=== PATIENT | female | born 1935 | race Caucasian/White ===

== ENCOUNTER 2016-12-23 12:48 | Outpatient (CLI) ==
[2015-12-21 16:16] VITALS: BMI 25.4
--- NOTE | 2016-12-27 10:56 | ECHO2D ---
Date of Exam: 12/23/16 Ordering Physician: NILAY ROSENTHAL Reason for Echo: SOB, COPD M-Mode Normal Adult Results LV Dimensions Normal Adult Results AoV Opening excursions >1.6 >1.6 LVEDD-base- 3.5-5.8 3.9 Ao root dimensions 2.0-3.7 3.2 LVESD-base- 3.1-4.6 L. Atrium dimensions 1.9-3.8 3.7 Post. Wall thickness 0.8-1.1 1.2 IV septum (thickness) 0.7-1.2 1.2 Post. Wall excursion 0.72-1.3 NORMAL Septal motion NORMAL Systolic motion R. Ventricular cavity 1.5-2.0 NORMAL LVEF 60% 68% Paradoxical septal wall motion NORMAL 2-D : 2-D M Mode Echocardiogram was performed using apical four chamber and left parasternal long and short axis views. Mitral, tricuspid and aortic valves appear to be normal. Contractility of the left ventricle seems to be normal, so is the cavity size. Left atrial cavity size and aortic root appear to be normal. There is no pericardial effusion. There is no thrombus noted in the left ventricular or left aortic cavity. No mitral valve prolapse noted. M-MODE: MV: NORMAL AV: NORMAL TV: NORMAL PV: CHAMBER SIZE: NORMAL WALL MOTION: NORMAL PERICARDIUM: NORMAL INTERPRETATION: 1. BORDERLINE LEFT VENTRICULAR HYPERTROPHY 2. NORMAL LEFT VENTRICULAR CONTRACTILITY 3. NORMAL VALVES MTDD
== END 2016-12-23 12:49 | disposition home or self-care (01) ==
LOC: CAR 12:48
PROVIDERS: ATTEND Internal Medicine
DX: R06.02 Shortness of breath (principal); J44.9 Chronic obstructive pulmonary disease, unspecified

== ENCOUNTER 2017-07-18 06:32 | Outpatient (CLI) ==
[2015-12-21 16:16] VITALS: BMI 25.4
[2017-07-18] MEDS ORDERED: ATROPINE SULFATE PFS ONE (06:50)
[2017-07-18] MEDS ORDERED: DOBUTAMINE 250 ML IV ONE (06:50)
--- NOTE | 2017-07-18 09:39 | DOBSTECHO ---
Ordering Physician: NILAY ROSENTHAL Date of Test: 07/18/17 Reason for Examination: SURGICAL CLEARANCE, PVC'S, SOB Current Medications: DILTIAZEM, TRIAMTERENE, SOLTALOL, PRILOSEC, ZOCOR, METHOTREXATE, CLONIDINE, SPIRIVA Height: 61" Weight: 133 LBS Target Heart Rate: 117/138 ST Segment Stage Time HR BPM BP mmhg Rhythm +/- Up Down Comments/Symptoms Control Sitting 55 122/60 SR X NONE Dobutamine 250mg/D5W 5cmg/KG/mn 10cmg/KG/mn 3" 62 SR X NONE 15cmg/KG/mn 2" 72 150/72 SR X NONE 20cmg/KG/mn 2" 75 178/70 SR X NONE 25cmg/KG/mn 2" 78 180/62 SR X NONE 30cmg/KG/mn 2" 84 180/60 SR X NONE 35cmg/KG/mn 2" 88 180/56 SR X NONE 40cmg/KG/mn 2:17 116 .25 MG ATROPINE Time: 4" HR B/P Time: 10" HR B/P Time: HR B/P Recovery 93 152/76 Recovery 74 168/68 Recovery Total Time: 15:17 Maximum Heart Rate Reached: 116 Interpretation: 1. NO EVIDENCE OF ISCHEMIA BY ST--T T WAVE 2. NO CHEST PAIN OR CHEST DISCOMFORT NORMAL LEFT VENTRICULAR CONTRACTILITY--RESTING AND DURING DOBUTAMINE INFUSION MTDD
--- NOTE | 2017-07-18 09:42 | ECHOSTRESS ---
Date of Exam: 07/18/17 Ordering Physician: NILAY ROSENTHAL Reason for Echo: HX PVC, SOB, SURGICAL CLEARANCE, DOBUTAMINE STRESS TEST--NO ISCHEMIA M-Mode Normal Adult Results LV Dimensions Normal Adult Results AoV Opening excursions >1.6 LVEDD-base- 3.5-5.8 Ao root dimensions 2.0-3.7 LVESD-base- 3.1-4.6 L. Atrium dimensions 1.9-3.8 Post. Wall thickness 0.8-1.1 IV septum (thickness) 0.7-1.2 Post. Wall excursion 0.72-1.3 Septal motion Systolic motion R. Ventricular cavity 1.5-2.0 LVEF 60% Paradoxical septal wall motion 2-D: NORMAL LEFT VENTRICULAR CONTRACTILITY--RESTING AND DURING DOBUTAMINE INFUSION M-MODE: MV: AV: TV: PV: CHAMBER SIZE: WALL MOTION: NORMAL LEFT VENTRICULAR CONTRACTILITY--RESTING AND DURING DOBUTAMINE INFUSION PERICARDIUM: INTERPRETATION: 1. NORMAL LEFT VENTRICULAR CONTRACTILITY--RESTING AND DURING DOBUTAMINE INFUSION MTDD
== END 2017-07-18 06:33 | disposition home or self-care (01) ==
LOC: CAR 06:32
PROVIDERS: ATTEND Internal Medicine
DX: R06.02 Shortness of breath (principal); I10 Essential (primary) hypertension; Z01.810 Encounter for preprocedural cardiovascular examination; Z86.79 Personal history of other diseases of the circulatory system

== ENCOUNTER 2017-08-03 04:44 | Emergency (ER) ==
[2017-08-03 04:54] VITALS: BP 164/97; TEMP 96.1; BMI 25.1
[2017-08-03] MEDS ORDERED: SOLU-MEDROL 125 MG IM STA (05:44)
--- NOTE | 2017-08-03 05:47 | ED.PDOC ---
General ED Provider: Dr. ALBARO LUDWIG Chief Complaint: Hand Pain/Injury Stated Complaint: pateint states she has a history of RA with joint pain but has had no flare up until recently when she had to have back surgery and her methotraxate was stopped. She took Ibupfufen for right PIP and DIP joints pain of ther 4th and 5 th fingers. Time Seen by Physician: 05:44 Mode of Arrival: Walk-In Information Source: Patient, Family Exam Limitations: Physical impairment Primary Care Provider: NILAY ROSENTHAL Nursing and Triage Documentation Reviewed and Agree: Yes Musculoskeletal Complaint Exam - Hand/Wrist Complaint/Exam Location of Pain: Reports: Right, Digit #4, Digit #5 Onset/Duration: 3 days Symptoms Are: Still present Onset of Pain: Reports: Immediate Initial Severity: Moderate Current Severity: Mild Location: Reports: Discrete (PIP and DIP joints ) Character: Reports: Aching, Throbbing Aggravating: Reports: Movement Associated Signs and Symptoms: Reports: Swelling Related History: Reports: Similar episode Dominant Hand: Right Related Surgical History: Reports: None Hand/Wrist Findings: Present: Swelling Tenderness: Present: Metacarpal (tenosinovitis ) Hand Picture: 1 - pain and swelling Differential Diagnoses: Sprain, Strain, Tendonitis Review of Systems - Review Of Systems Constitutional: Reports: No symptoms Eyes: Reports: No symptoms Ears, Nose, Mouth, Throat: Reports: No symptoms Respiratory: Reports: No symptoms Cardiac: Reports: No symptoms GI: Reports: No symptoms : Reports: No symptoms Musculoskeletal: Reports: Joint pain, Joint swelling (Right hand ) Skin: Reports: No symptoms Neurological: Reports: No symptoms Endocrine: Reports: No symptoms Hematologic/Lymphatic: Reports: No symptoms All Other Systems: Reviewed and Negative Past Medical History - Past Medical History Previously Healthy: Yes Endocrine: Reports: Dyslipidemia Cardiovascular: Reports: CAD, Hypertension Respiratory: Reports: None Hematological: Reports: None Gastrointestinal: Reports: None Genitourinary: Reports: None Neuro/Psych: Reports: None Musculoskeletal: Reports: Arthritis Cancer: Reports: None Last Menstrual Period: UNKNOWN - Surgical History General Surgical History: Reports: Back Surgery, Other (breast biopsy) - Family History Family History: Reports: None - Social History Smoking Status: Never smoker Hx Substance Use: No Alcohol Screening: None - Immunizations Tetanus Shot up to Date: Yes Physical Exam - Physical Exam Appearance: Ill-appearing, Thin Ill-appearing: Mild Pain Distress: Moderate Neck: Supple Respiratory: Airway patent, Breath sounds clear, Breath sounds equal, Respirations nonlabored GI/: Soft, Nontender, No masses, Bowel sounds normal, No Organomegaly Musculoskeletal: Normal strength, ROM intact, No edema, No calf tenderness Skin: Warm, Dry (lower back wound helaing ) Neurological: Sensation intact, Motor intact, Reflexes intact, Cranial nerves intact, Alert, Oriented Psychiatric: Anxious Critical Care Note - Critical Care Note Total Time (mins): 0 Course - Course Orders, Labs, Meds: Orders Category Date Time Status Methylprednisolone Sod Succ/Pf [Solu-Medrol 125 mg] MEDS 08/03/17 05:44 Discontinued 125 mg IM ONCE STA Medications Discontinued Medications Generic Name Dose Route Start Last Admin Trade Name Freq PRN Reason Stop Dose Admin Methylprednisolone Sodium Succinate 125 mg 08/03/17 05:44 08/03/17 05:55 Solu-Medrol 125 Mg IM 08/03/17 05:45 125 mg ONCE STA Administration Vital Signs: Temp Pulse Resp BP Pulse Ox 08/03/17 04:45 96.1 F L 52 L 18 164/97 H 94 L Departure - Departure Time of Disposition: 06:15 Disposition: HOME SELF-CARE Discharge Problem: Rheumatoid arthritis flare Instructions: Rheumatoid Arthritis (ED) Condition: Fair Pt referred to PMD for follow-up: Yes Additional Instructions: Take Medrol dose pack if symptoms of pain and swelling persists Prescriptions: Methylprednisolone [Medrol Dosepak] 4 mg PO DIRECTED #1 pkg Allergies/Adverse Reactions: Allergies chlorpheniramine [From Kelli] Adverse Reaction (Verified 08/09/15 04:35) codeine Adverse Reaction (Verified 08/09/15 04:35) hydrocodone Adverse Reaction (Verified 08/09/15 04:35) ibandronate sodium [From Boniva] Adverse Reaction (Verified 08/09/15 04:35) imipramine HCl [From Tofranil] Adverse Reaction (Verified 08/09/15 04:35) oseltamivir phosphate [From Tamiflu] Adverse Reaction (Verified 08/09/15 04:35) oxymetazoline HCl [From Kelli] Adverse Reaction (Verified 08/09/15 04:35) pheniramine maleate [From Kelli] Adverse Reaction (Verified 08/09/15 04:35) phenylephrine HCl [From Kelli] Adverse Reaction (Verified 08/09/15 04:35) pseudoephedrine HCl [From Kelli] Adverse Reaction (Verified 08/09/15 04:35) ramipril [From Altace] Adverse Reaction (Verified 08/09/15 04:35) zolpidem tartrate [From Ambien] Adverse Reaction (Verified 08/09/15 04:35) TAPE Adverse Reaction (Uncoded 08/03/17 04:55) Home Medications: Ambulatory Orders Acetaminophen 2,000 mg PO DAILY PRN 06/18/13 Clonidine HCl [Catapres] 0.1 mg PO DAILY PRN 06/18/13 Cyclosporine [Restasis] 2 each OP BID 06/18/13 Folic Acid 2 mg PO DAILY 06/18/13 Omeprazole [Prilosec] 20 mg PO QDAC 06/18/13 Diltiazem HCl [Cardizem LA] 120 mg PO BID 06/21/14 Polyethylene Glycol 3350 [Miralax] 17 gm PO DAILY PRN 06/21/14 Simvastatin [Zocor] 20 mg PO DAILY 06/21/14 L.acidoph,Paracasei, B.lactis [Probiotic] 1 each PO DIRECTED 08/09/15 Albuterol Sulfate [Proair Hfa] 2 puff IH Q4H PRN 08/03/17 Ascorbate Calcium [Vitamin C] 500 mg PO DAILY 08/03/17 Calcium Carbonate/Vitamin D3 [Calcium 600-Vit D3 800 Tablet] 1 each PO BID 08/03 Diphenhydramine HCl [Benadryl] 1 - 2 cap PO BEDTIME 08/03/17 Ibuprofen 400 mg PO Q6H PRN 08/03/17 Lutein 20 mg PO DAILY 08/03/17 Methotrexate Sodium [Trexall] 3 mg PO [place] 08/03/17 Methylprednisolone [Medrol Dosepak] 4 mg PO DIRECTED #1 pkg 08/03/17 Sotalol HCl [Sotalol] 80 mg PO BID 08/03/17 Tiotropium [place] [Spiriva Respimat] 2 inh IH DAILY 08/03/17 Triamterene/Hydrochlorothiazid [Triamterene-Hctz 37.5-25 mg Cp] 1 each PO DAILY 08/03/17 Disposition Discussed With: Patient, Family
== END 2017-08-03 06:12 | disposition home or self-care (01) ==
LOC: ED 04:44
DX: M79.641 Pain in right hand (principal); M06.9 Rheumatoid arthritis, unspecified; Z98.890 Other specified postprocedural states; Z79.899 Other long term (current) drug therapy
CPT/HCPCS: 96372; 99282

== ENCOUNTER 2018-04-05 19:03 | Emergency (ER) ==
[2018-04-05 19:16] VITALS: BP 154/63; TEMP 98.1; BMI 24.1
[2018-04-05] MEDS ORDERED: SOLU-MEDROL 125 MG IM STA (19:43)
[2018-04-05] MEDS ORDERED: CLARITIN PO STA (19:43)
[2018-04-05] MEDS ORDERED: PEPCID PO STA (19:43)
[2018-04-05] MEDS ORDERED: EPINEPHRINE 1:1,000 AMP IM STA (19:43)
--- NOTE | 2018-04-05 20:07 | ED.PDOC ---
General ED Provider: Dr. ALBARO LUDWIG Chief Complaint: Rash Stated Complaint: Patient states she has had a rash on the back and Trunk for months. The rash has not improved. was seen by Dermatology but was not offered anything other than treatment for mites. Time Seen by Physician: 19:20 Information Source: Patient Primary Care Provider: NILAY ROSENTHAL Nursing and Triage Documentation Reviewed and Agree: Yes Does patient meet sepsis criteria?: No System Inflammatory Response Syndrome: Not Applicable Sepsis Protocol: For patient's 13 years and over: Temp is 96.8 and below OR 101 and greater Pulse >90 BPM Resp >20/minute Acutely Altered Mental Status Are patient's symptoms suggestive of a new infection, such as: -Pneumonia -Skin, Soft Tissue -Endocarditis -UTI -Bone, Joint Infection -Implantable Device -Acute Abdominal Infection -Wound Infection -Meningitis -Blood Stream Catheter Infection -Unknown Skin Complaint Exam - Skin Rash/Itching Complaint/Exam Onset/Duration: months Symptoms Are: Still present Initial Severity: Mild Current Severity: Moderate Location: Trunk Potential Exposures: Reports: Unknown Prior Treatment: Benadryl, Prednisone Aggravating: Reports: None Alleviating: Reports: None Associated Signs and Symptoms: Denies: Difficulty breathing, Fever, Chills Skin Findings: Present: Urticaria, Lesions Differential Diagnoses: Allergic Reaction Review of Systems - Review Of Systems Constitutional: Reports: No symptoms Eyes: Reports: No symptoms Ears, Nose, Mouth, Throat: Reports: No symptoms Respiratory: Reports: No symptoms Cardiac: Reports: No symptoms GI: Reports: No symptoms : Reports: No symptoms Musculoskeletal: Reports: No symptoms Skin: Reports: Rash (with puritis ) Neurological: Reports: No symptoms Endocrine: Reports: No symptoms Hematologic/Lymphatic: Reports: No symptoms All Other Systems: Reviewed and Negative Past Medical History - Past Medical History Previously Healthy: Yes Endocrine: Reports: Dyslipidemia Cardiovascular: Reports: CAD, Hypertension Respiratory: Reports: None Hematological: Reports: None Gastrointestinal: Reports: None Genitourinary: Reports: None Neuro/Psych: Reports: None Musculoskeletal: Reports: Arthritis Cancer: Reports: None Last Menstrual Period: unknown - Surgical History General Surgical History: Reports: Back Surgery, Other (breast biopsy) - Family History Family History: Reports: None - Social History Smoking Status: Never smoker Hx Substance Use: No Alcohol Screening: None Physical Exam - Physical Exam Appearance: Ill-appearing Ill-appearing: Mild Eyes: ELOISE, EOMI, Conjunctiva clear ENT: Ears normal, Nose normal, Oropharynx normal Respiratory: Airway patent, Breath sounds clear, Breath sounds equal, Respirations nonlabored Cardiovascular: RRR, Pulses normal, No rub, No murmur GI/: Soft, Nontender, No masses, Bowel sounds normal, No Organomegaly Musculoskeletal: Normal strength, ROM intact, No edema, No calf tenderness Skin: Warm, Dry, Normal color Neurological: Sensation intact, Motor intact, Reflexes intact, Cranial nerves intact, Alert, Oriented Psychiatric: Affect appropriate, Mood appropriate Critical Care Note - Critical Care Note Total Time (mins): 0 Course - Course Orders, Labs, Meds: Orders Category Date Time Status Epinephrine Amp [Epinephrine 1:1,000 Amp] MEDS 04/05/18 19:43 Discontinued 0.3 mg IM ONCE STA Famotidine [Pepcid] MEDS 04/05/18 19:43 Discontinued 20 mg PO ONCE STA Loratadine [Claritin] MEDS 04/05/18 19:43 Discontinued 10 mg PO ONCE STA Methylprednisolone Sod Succ/Pf [Solu-Medrol 125 mg] MEDS 04/05/18 19:43 Discontinued 125 mg IM ONCE STA Medications Discontinued Medications Generic Name Dose Route Start Last Admin Trade Name Freq PRN Reason Stop Dose Admin Epinephrine HCl 0.3 mg 04/05/18 19:43 04/05/18 20:01 Epinephrine 1:1,000 Amp IM 04/05/18 19:44 0.3 mg ONCE STA Administration Famotidine 20 mg 04/05/18 19:43 04/05/18 19:56 Pepcid PO 04/05/18 19:44 20 mg ONCE STA Administration Loratadine 10 mg 04/05/18 19:43 04/05/18 19:56 Claritin PO 04/05/18 19:44 10 mg ONCE STA Administration Methylprednisolone Sodium Succinate 125 mg 04/05/18 19:43 04/05/18 20:01 Solu-Medrol 125 Mg IM 04/05/18 19:44 125 mg ONCE STA Administration Vital Signs: Temp Pulse Resp BP Pulse Ox 04/05/18 19:04 98.1 F 49 L 20 154/63 H 96 Departure - Departure Time of Disposition: 20:05 Disposition: HOME SELF-CARE Discharge Problem: Pruritic rash, Dermatitis, vesicular Instructions: Dermatitis (ED) Condition: Stable Pt referred to PMD for follow-up: Yes IPMP verified?: No Additional Instructions: continue home Benadryl as needed for itching May also take claritin, zyrtec or allergra = H1 blockers In addition may take Pepcid or Zantac = H2 pau Follow up with Dermatology for Skin biopsy Continue dose of predispose for now until your doctor decides to stop it. Allergies/Adverse Reactions: Allergies chlorpheniramine [From Kelli] Adverse Reaction (Verified 04/05/18 19:18) codeine Adverse Reaction (Verified 04/05/18 19:18) hydrocodone Adverse Reaction (Verified 04/05/18 19:18) ibandronate sodium [From Boniva] Adverse Reaction (Verified 04/05/18 19:18) imipramine HCl [From Tofranil] Adverse Reaction (Verified 04/05/18 19:18) oseltamivir phosphate [From Tamiflu] Adverse Reaction (Verified 04/05/18 19:18) oxymetazoline HCl [From Kelli] Adverse Reaction (Verified 04/05/18 19:18) pheniramine maleate [From Kelli] Adverse Reaction (Verified 04/05/18 19:18) phenylephrine HCl [From Kelli] Adverse Reaction (Verified 04/05/18 19:18) pseudoephedrine HCl [From Kelli] Adverse Reaction (Verified 04/05/18 19:18) ramipril [From Altace] Adverse Reaction (Verified 04/05/18 19:18) zolpidem tartrate [From Ambien] Adverse Reaction (Verified 04/05/18 19:18) TAPE Adverse Reaction (Uncoded 08/03/17 04:55) Home Medications: Ambulatory Orders Acetaminophen 2,000 mg PO DAILY PRN 06/18/13 Clonidine HCl [Catapres] 0.1 mg PO DAILY PRN 06/18/13 Cyclosporine [Restasis] 2 each OP BID 06/18/13 Folic Acid 2 mg PO DAILY 06/18/13 Omeprazole [Prilosec] 20 mg PO QDAC 06/18/13 Diltiazem HCl [Cardizem LA] 120 mg PO BID 06/21/14 Polyethylene Glycol 3350 [Miralax] 17 gm PO DAILY PRN 06/21/14 Simvastatin [Zocor] 20 mg PO DAILY 06/21/14 L.acidoph,Paracasei, B.lactis [Probiotic] 1 each PO DIRECTED 08/09/15 Albuterol Sulfate [Proair Hfa] 2 puff IH Q4H PRN 08/03/17 Ascorbate Calcium [Vitamin C] 500 mg PO DAILY 08/03/17 Calcium Carbonate/Vitamin D3 [Calcium 600-Vit D3 800 Tablet] 1 each PO BID 08/03 Diphenhydramine HCl [Benadryl] 1 - 2 cap PO BEDTIME 08/03/17 Ibuprofen 400 mg PO Q6H PRN 08/03/17 Lutein 20 mg PO DAILY 08/03/17 Methotrexate Sodium [Trexall] 3 mg PO [place] 08/03/17 Methylprednisolone [Medrol Dosepak] 4 mg PO DIRECTED #1 pkg 08/03/17 Sotalol HCl [Sotalol] 80 mg PO BID 08/03/17 Tiotropium [place] [Spiriva Respimat] 2 inh IH DAILY 08/03/17 Triamterene/Hydrochlorothiazid [Triamterene-Hctz 37.5-25 mg Cp] 1 each PO DAILY 08/03/17 Disposition Discussed With: Patient, Family
== END 2018-04-05 20:45 | disposition home or self-care (01) ==
LOC: ED 19:03
DX: R21 Rash and other nonspecific skin eruption (principal); L29.9 Pruritus, unspecified
CPT/HCPCS: 96372; 99282

== ENCOUNTER 2019-01-30 13:29 | Emergency (ER) ==
[2019-01-30 13:37] VITALS: TEMP 99.7
[2019-01-30 13:52] VITALS: BMI 23.5
--- NOTE | 2019-01-30 14:01 | ED.PDOC ---
General ED Provider: Dr. JOHN PAUL LARIOS Chief Complaint: Hypertension Stated Complaint: Elevated BP. b/p readings steadily going up over past 2 weeks --has swelling to lower legs with left leg worse--has been taking furosemide-- took clonidine 0.1mg at 12:12--checked b/p at 1300 at 214/87--sl "head fullness " noted when b/p up--no haeadache or chest pain Time Seen by Physician: 13:55 Mode of Arrival: Walk-In Information Source: Patient Exam Limitations: No limitations Primary Care Provider: NILAY ROSENTHAL Nursing and Triage Documentation Reviewed and Agree: Yes Does patient meet sepsis criteria?: No System Inflammatory Response Syndrome: Not Applicable Sepsis Protocol: For patient's 13 years and over: Temp is 96.8 and below OR 101 and greater Pulse >90 BPM Resp >20/minute Acutely Altered Mental Status Are patient's symptoms suggestive of a new infection, such as: -Pneumonia -Skin, Soft Tissue -Endocarditis -UTI -Bone, Joint Infection -Implantable Device -Acute Abdominal Infection -Wound Infection -Meningitis -Blood Stream Catheter Infection -Unknown Cardiovascular Complaint Exam - Hypertension Complaint/Exam Onset/Duration: 2 wk Symptoms Are: Still present Timing: Constant Reported B/P Prior to Arrival: / Aggravating: Reports: Exertion Alleviating: Reports: None Associated Signs and Symptoms: Reports: Headache, Weakness, Dizziness, Swelling. Denies: Chest pain, Vision changes, Anxiety, Recent stress, Numbness , Tingling, Short of air Related History: Denies: Similar episode Related Surgical History: Reports: None Cardiac Risk Factors: Reports: Hypertension A/V Nicking: No Papilledema Present: No JVD Present: No Carotid Bruit Present: No Femoral Pulses Bounding: No Differential Diagnoses: Hypertensive Urgency Review of Systems - Review Of Systems Constitutional: Reports: Weakness Eyes: Reports: No symptoms Ears, Nose, Mouth, Throat: Reports: No symptoms Respiratory: Reports: No symptoms Cardiac: Reports: No symptoms, Edema GI: Reports: No symptoms : Reports: No symptoms Musculoskeletal: Reports: No symptoms Skin: Reports: No symptoms Neurological: Reports: Headache Endocrine: Reports: No symptoms Hematologic/Lymphatic: Reports: No symptoms All Other Systems: Reviewed and Negative Past Medical History - Past Medical History Previously Healthy: Yes Endocrine: Reports: Dyslipidemia Cardiovascular: Reports: CAD, Hypertension Respiratory: Reports: None Hematological: Reports: None Gastrointestinal: Reports: None Genitourinary: Reports: None Neuro/Psych: Reports: None Musculoskeletal: Reports: Arthritis Cancer: Reports: None Last Menstrual Period: menopause - Surgical History General Surgical History: Reports: Back Surgery, Other (breast biopsy) - Family History Family History: Reports: None - Social History Smoking Status: Never smoker Hx Substance Use: No Alcohol Screening: None Physical Exam - Physical Exam Appearance: Ill-appearing Ill-appearing: Mild Eyes: ELOISE, EOMI, Conjunctiva clear ENT: Ears normal, Nose normal, Oropharynx normal Neck: Supple Respiratory: Airway patent, Breath sounds clear, Breath sounds equal, Respirations nonlabored Cardiovascular: RRR, Pulses normal, No rub, No murmur GI/: Soft, Nontender, No masses, Bowel sounds normal, No Organomegaly Musculoskeletal: Normal strength, ROM intact, No edema, No calf tenderness Skin: Warm, Dry, Normal color Neurological: Sensation intact, Motor intact, Reflexes intact, Cranial nerves intact, Alert, Oriented Psychiatric: Affect appropriate, Mood appropriate Interpretation - Radiology Interpretation Exam Interpreted: CXR (No acute abnoramlities) Critical Care Note - Critical Care Note Total Time (mins): 60 Course - Course Hematology/Chemistry: 01/30/19 14:46 01/30/19 14:46 Orders, Labs, Meds: Lab Review 01/30/19 01/30/19 01/30/19 14:46 14:46 14:46 WBC 16.83 H RBC 2.88 L Hgb 10.7 L Hct 31.3 L MCV 108.7 H MCH 37.2 H MCHC 34.2 RDW Coeff of Timothy 14.6 Plt Count 388 Immature Gran % (Auto) 1.6 Neut % (Auto) 90.4 Lymph % (Auto) 1.7 L [place] % (Auto) 6.0 Eos % (Auto) 0.1 Baso % (Auto) 0.2 Immature Gran # (Auto) 0.3 Neut # (Auto) 15.2 H Lymph # (Auto) 0.3 L [place] # (Auto) 1.0 Eos # (Auto) 0.0 Baso # (Auto) 0.0 Anisocytosis Not present Macrocytosis 1+ Sodium 130.9 L Potassium 4.00 Chloride 97.4 L Carbon Dioxide 28.5 Anion Gap 9.00 BUN 26.2 H Creatinine 0.71 Estimated GFR (MDRD) 79.00 BUN/Creatinine Ratio 36.90 Glucose 123.4 H Calcium 8.95 Magnesium 1.77 Total Bilirubin 0.74 AST 24.7 ALT 22.7 Alkaline Phosphatase 218.1 H Troponin I 0.018 Total Protein 5.56 L Albumin 3.47 L Globulin 2.09 Albumin/Globulin Ratio 1.66 Orders Category Date Time Status EKG-(ED ONLY) Stat CARDIO 01/30/19 14:24 Completed CBC W/ AUTO DIFF Stat LAB 01/30/19 14:46 Completed CMP [COMPREHENSIVE METABOLIC PANEL] Stat LAB 01/30/19 14:46 Completed MAGNESIUM Stat LAB 01/30/19 14:46 Completed RBC MORPHOLOGY Stat LAB 01/30/19 14:46 Completed TROPONIN I Stat LAB 01/30/19 14:46 Completed CHEST, 1V AP ONLY Stat RADS 01/30/19 14:24 Completed Vital Signs: Temp Pulse Resp BP Pulse Ox 01/30/19 15:19 158/69 H 01/30/19 14:21 65 20 170/69 H 01/30/19 13:29 99.7 F H 70 16 169/74 H 94 L COLT Risk Score COLT Risk Score: Risk Score Odds of by 30D 0 0.1 (0.1-0.2) 1 0.3 (0.2-0.3) 2 0.4 (0.3-0.5) 3 0.7 (0.6-0.9) 4 1.2 (1.0-1.5) 5 2.2 (1.9-2.6) 6 3.0 (2.5-3.6) 7 4.8 (3.8-6.1) Departure - Departure Time of Disposition: 17:00 Disposition: HOME SELF-CARE Discharge Problem: Hypertension Instructions: Hypertension (ED) Condition: Good Pt referred to PMD for follow-up: Yes IPMP verified?: No Additional Instructions: Take Cozar 1 daily Monitor BP daily If BP >160 />90-100, and symptomatic, rest for 30 min and recheck BP; IF remains elevated take Clonidine 1/2 tab and notify PCP/If remains elevated come to ER. Continue other meds as directed Monitor electrolytes/ Potassium level through Dr Sandy office and keep K+ level 3.5-5.1 Allergies/Adverse Reactions: Allergies certolizumab pegol [From Cimzia] Adverse Reaction (Verified 03/04/19 16:50) Hives chlorpheniramine [From Drlanny] Adverse Reaction (Verified 03/04/19 16:50) codeine Adverse Reaction (Verified 03/04/19 16:50) duloxetine [From Cymbalta] Adverse Reaction (Verified 03/04/19 16:50) DIARRHEA/DRY HEAVES hydrocodone Adverse Reaction (Verified 03/04/19 16:50) ibandronate sodium [From Boniva] Adverse Reaction (Verified 03/04/19 16:50) imipramine HCl [From Tofranil] Adverse Reaction (Verified 03/04/19 16:50) oseltamivir phosphate [From Tamiflu] Adverse Reaction (Verified 03/04/19 16:50) oxymetazoline HCl [From Kelli] Adverse Reaction (Verified 03/04/19 16:50) pheniramine maleate [From Kelli] Adverse Reaction (Verified 03/04/19 16:50) phenylephrine HCl [From Kelli] Adverse Reaction (Verified 03/04/19 16:50) pseudoephedrine HCl [From Kelli] Adverse Reaction (Verified 03/04/19 16:50) ramipril [From Altace] Adverse Reaction (Verified 03/04/19 16:50) zolpidem tartrate [From Ambien] Adverse Reaction (Verified 03/04/19 16:50) TAPE Adverse Reaction (Uncoded 02/03/19 03:38) Home Medications: Ambulatory Orders Clonidine HCl [Catapres] 0.1 mg PO DAILY PRN 06/18/13 Cyclosporine [Restasis] 2 each OP BID 06/18/13 Omeprazole [Prilosec] 20 mg PO QDAC 06/18/13 Diltiazem HCl [Cardizem LA] 120 mg PO BID 06/21/14 Polyethylene Glycol 3350 [Miralax] 17 gm PO DAILY PRN 06/21/14 Simvastatin [Zocor] 20 mg PO DAILY 06/21/14 Albuterol Sulfate [Proair Hfa] 2 puff IH Q4H PRN 08/03/17 Lutein 20 mg PO DAILY 08/03/17 Sotalol HCl [Sotalol] 80 mg PO TID 08/03/17 Methotrexate Sodium [Methotrexate] 6 tab PO CASTAÑEDA 08/01/18 Prednisone 10 mg PO DIRECTED 08/01/18 Acetaminophen [Tylenol Extra Strength] 1,000 mg PO 0300,209908/02/18 Diphenhydramine HCl 25 mg PO 030,209908/02/18 Furosemide [Lasix Tab] 20 mg PO QDAC 01/30/19 Potassium Chloride [K-Dur] 10 meq PO DAILY 01/30/19 Folic Acid 3 tab PO DAILY 02/03/19 Losartan Potassium [Cozaar] 100 mg PO DAILY #30 tab 02/06/19 Cholecalciferol (Vitamin D3) [Vitamin D3] 1 cap PO DAILY 03/04/19 Doxycycline Hyclate 1 cap PO DAILY 03/04/19 Erythromycin Opth Oint [Erythromycin] 1 applic EACHEYE BEDTIME 03/04/19 Tramadol HCl 0.5 tab PO BID PRN 03/04/19 Cephalexin [Keflex] 500 mg PO BID #10 capsule 03/06/19 Disposition Discussed With: Patient, Family
--- NOTE | 2019-01-30 14:53 | DI ---
EXAM: Chest one view HISTORY: Blood pressure elevation COMPARISON: 08/01/2018 TECHNIQUE: Single view of the chest was performed FINDINGS: No airspace consolidation. Mild bibasilar scarring and/or subsegmental atelectasis. Gran ulomas calcification. There is no pleural effusion or pneumothorax. The heart is normal in size. T he mediastinal contour is normal, noting atherosclerosis. There are no acute abnormalities of the andi tomer. IMPRESSION: No acute cardiopulmonary process.
[2019-01-30 15:20] VITALS: BP 158/69
== END 2019-01-30 17:34 | disposition home or self-care (01) ==
LOC: ED 13:29
DX: I10 Essential (primary) hypertension (principal); M79.89 Other specified soft tissue disorders; R51 Headache; R53.1 Weakness; R42 Dizziness and giddiness; E78.5 Hyperlipidemia, unspecified; I25.10 Atherosclerotic heart disease of native coronary artery without angina pectoris
CPT/HCPCS: 36415; 80053; 83735; 84484; 85008; 85025; 93005; 93010; 99283

== ENCOUNTER 2019-02-03 02:25 | Observation (INO) | payer OTHER ==
--- NOTE | 2019-02-03 03:38 | ED.PDOC ---
General ED Provider: Dr. JOHN PAUL DUONG-ER Chief Complaint: Hypertension Stated Complaint: my bp is out of control---i was here here 3 days ago--i can feel my bp going up Time Seen by Physician: 02:30 Mode of Arrival: Wheelchair Information Source: Patient, Family Exam Limitations: No limitations Primary Care Provider: NILAY HOLBROOK Nursing and Triage Documentation Reviewed and Agree: Yes Does patient meet sepsis criteria?: No System Inflammatory Response Syndrome: Not Applicable Sepsis Protocol: For patient's 13 years and over: Temp is 96.8 and below OR 101 and greater Pulse >90 BPM Resp >20/minute Acutely Altered Mental Status Are patient's symptoms suggestive of a new infection, such as: -Pneumonia -Skin, Soft Tissue -Endocarditis -UTI -Bone, Joint Infection -Implantable Device -Acute Abdominal Infection -Wound Infection -Meningitis -Blood Stream Catheter Infection -Unknown Cardiovascular Complaint Exam - Hypertension Complaint/Exam Onset/Duration: several days Symptoms Are: Still present Timing: Constant Reported B/P Prior to Arrival: 200/100 Aggravating: Reports: None Alleviating: Reports: None Associated Signs and Symptoms: Reports: Anxiety Related History: Reports: Similar episode Recent Change in Medications: No A/V Nicking: No Papilledema Present: No JVD Present: No Carotid Bruit Present: No Femoral Pulses Bounding: Yes Differential Diagnoses: Hypertensive Crisis Quality Indicator For Non-Traumatic Chest Pain/Syncope: EKG Performed Review of Systems - Review Of Systems Constitutional: Reports: No symptoms Eyes: Reports: No symptoms Ears, Nose, Mouth, Throat: Reports: No symptoms Respiratory: Reports: No symptoms Cardiac: Reports: No symptoms GI: Reports: No symptoms : Reports: No symptoms Musculoskeletal: Reports: No symptoms Skin: Reports: No symptoms Neurological: Reports: No symptoms Endocrine: Reports: No symptoms Hematologic/Lymphatic: Reports: No symptoms All Other Systems: Reviewed and Negative Past Medical History - Past Medical History Previously Healthy: Yes Endocrine: Reports: Dyslipidemia Cardiovascular: Reports: CAD, Hypertension Respiratory: Reports: None Hematological: Reports: None Gastrointestinal: Reports: None Genitourinary: Reports: None Neuro/Psych: Reports: None Musculoskeletal: Reports: Arthritis Cancer: Reports: None Last Menstrual Period: none - Surgical History General Surgical History: Reports: Back Surgery, Other (breast biopsy) - Family History Family History: Reports: None - Social History Smoking Status: Never smoker Hx Substance Use: No Alcohol Screening: None - Immunizations Tetanus Shot up to Date: Yes Physical Exam - Physical Exam Appearance: Well-appearing, No pain distress, Well-nourished Eyes: ELOISE, EOMI, Conjunctiva clear ENT: Ears normal, Nose normal, Oropharynx normal Neck: Supple Respiratory: Airway patent, Breath sounds clear, Breath sounds equal, Respirations nonlabored Cardiovascular: RRR, Pulses normal, No rub, No murmur, Bradycardia GI/: Soft, Nontender, No masses, Bowel sounds normal, No Organomegaly Musculoskeletal: Normal strength, ROM intact, No edema, No calf tenderness Skin: Warm, Dry, Normal color Neurological: Sensation intact, Motor intact, Reflexes intact, Cranial nerves intact, Alert, Oriented Psychiatric: Affect appropriate, Mood appropriate, Anxious Interpretation - EKG Interpretation Time of EKG #1: 03:38 Rate: William Rhythm: Sinus Ectopy: None [place]: NL ST Segment: Normal Re-Evaluation - Re-Evaluation Time of Re-Evaluation: 03:38 Status: Improved Vital Signs Stable: Yes Pain Level: 0 Appearance: NAD Lungs: Clear Skin: Warm and Dry Neuro: Alert and Oriented X3 CV: RRR Physician Notification - Case Discussed Physician Notified: dr holbrook Time of Notification: 03:39 Critical Care Note - Critical Care Note Total Time (mins): 30 Course - Course Hematology/Chemistry: 02/03/19 02:45 02/03/19 02:45 Orders, Labs, Meds: Lab Review 02/03/19 02/03/19 02/03/19 02:45 02:45 03:20 WBC 13.28 H RBC 2.81 L Hgb 10.4 L Hct 30.8 L MCV 109.6 H MCH 37.0 H MCHC 33.8 RDW Coeff of Timothy 14.4 Plt Count 343 Immature Gran % (Auto) 2.0 Neut % (Auto) 86.3 Lymph % (Auto) 3.9 L [place] % (Auto) 7.2 Eos % (Auto) 0.4 Baso % (Auto) 0.2 Immature Gran # (Auto) 0.3 Neut # (Auto) 11.5 H Lymph # (Auto) 0.5 L [place] # (Auto) 1.0 Eos # (Auto) 0.1 Baso # (Auto) 0.0 Anisocytosis Not present Macrocytosis 1+ Sodium 132.0 L Potassium 4.23 Chloride 100.5 Carbon Dioxide 23.0 Anion Gap 12.73 BUN 28.7 H Creatinine 0.71 Estimated GFR (MDRD) 79.00 BUN/Creatinine Ratio 40.42 Glucose 143.8 H Calcium 9.25 Total Bilirubin 0.47 AST 22.2 ALT 20.4 Alkaline Phosphatase 225.9 H Total Protein 5.77 L Albumin 3.49 L Globulin 2.28 Albumin/Globulin Ratio 1.53 Urine Color Yellow Urine Clarity Slightly Urine pH 7.0 Ur Specific [place] 1.010 Urine Protein Negative Urine Glucose (UA) Negative Urine Ketones Negative Urine Blood Negative Urine Nitrite Negative Urine Bilirubin Negative Urine Urobilinogen 0.2 Ur Leukocyte Esterase 2+ Urine Microscopic WBC 20-30 Ur Squamous Epith Cells 5-10 Hyaline Casts 2-5 Urine Mucus Trace Orders Category Date Time Status EKG-(ED ONLY) Stat CARDIO 02/03/19 02:36 Ordered CBC W/ AUTO DIFF Stat LAB 02/03/19 02:45 Completed COMPREHENSIVE METABOLIC PANEL Stat LAB 02/03/19 02:45 Completed RBC MORPHOLOGY Stat LAB 02/03/19 02:45 Completed URINALYSIS C & S IF INDICATED Stat LAB 02/03/19 03:20 Completed URINE CULTURE Stat LAB 02/03/19 03:20 Received Vital Signs: Temp Pulse Resp BP Pulse Ox 02/03/19 03:32 143/61 H 02/03/19 02:25 97.6 F 62 20 121/66 94 L COLT Risk Score COLT Risk Score: Risk Score Odds of by 30D 0 0.1 (0.1-0.2) 1 0.3 (0.2-0.3) 2 0.4 (0.3-0.5) 3 0.7 (0.6-0.9) 4 1.2 (1.0-1.5) 5 2.2 (1.9-2.6) 6 3.0 (2.5-3.6) 7 4.8 (3.8-6.1) Departure - Departure Time of Disposition: 03:38 Disposition: ADMITTED INPATIENT Discharge Problem: Hypertensive urgency Instructions: Hypertension (ED) Condition: Stable Pt referred to PMD for follow-up: Yes IPMP verified?: No Allergies/Adverse Reactions: Allergies certolizumab pegol [From Cimzia] Adverse Reaction (Verified 02/03/19 02:28) Hives chlorpheniramine [From Dristan] Adverse Reaction (Verified 02/03/19 02:28) codeine Adverse Reaction (Verified 02/03/19 02:28) duloxetine [From Cymbalta] Adverse Reaction (Verified 02/03/19 02:28) DIARRHEA/DRY HEAVES hydrocodone Adverse Reaction (Verified 02/03/19 02:28) ibandronate sodium [From Boniva] Adverse Reaction (Verified 02/03/19 02:28) imipramine HCl [From Tofranil] Adverse Reaction (Verified 02/03/19 02:28) oseltamivir phosphate [From Tamiflu] Adverse Reaction (Verified 02/03/19 02:28) oxymetazoline HCl [From Kelli] Adverse Reaction (Verified 02/03/19 02:28) pheniramine maleate [From Kelli] Adverse Reaction (Verified 02/03/19 02:28) phenylephrine HCl [From Kelli] Adverse Reaction (Verified 02/03/19 02:28) pseudoephedrine HCl [From Kelli] Adverse Reaction (Verified 02/03/19 02:28) ramipril [From Altace] Adverse Reaction (Verified 02/03/19 02:28) zolpidem tartrate [From Ambien] Adverse Reaction (Verified 02/03/19 02:28) TAPE Adverse Reaction (Uncoded 02/03/19 02:28) Home Medications: Ambulatory Orders Clonidine HCl [Catapres] 0.1 mg PO DAILY PRN 06/18/13 Cyclosporine [Restasis] 2 each OP BID 06/18/13 Folic Acid 3 tab PO DAILY 06/18/13 Omeprazole [Prilosec] 20 mg PO QDAC 06/18/13 Diltiazem HCl [Cardizem LA] 120 mg PO BID 06/21/14 Polyethylene Glycol 3350 [Miralax] 17 gm PO DAILY PRN 06/21/14 Simvastatin [Zocor] 20 mg PO DAILY 06/21/14 L.acidoph,Paracasei, B.lactis [Probiotic] 1 each PO DAILY PRN 08/09/15 Albuterol Sulfate [Proair Hfa] 2 puff IH Q4H PRN 08/03/17 Ibuprofen 400 mg PO Q6H PRN 08/03/17 Lutein 20 mg PO DAILY 08/03/17 Sotalol HCl [Sotalol] 80 mg PO TID 08/03/17 Methotrexate Sodium [Methotrexate] 6 tab PO CASTAÑEDA 08/01/18 Prednisone 5 mg PO BID 08/01/18 Tiotropium [place] [Spiriva Respimat] 2 inh IH DAILY 08/01/18 Acetaminophen [Tylenol Extra Strength] 1,000 mg PO 0300,209908/02/18 Diphenhydramine HCl 25 mg PO 0300,209908/02/18 Furosemide [Lasix Tab] 20 mg PO QDAC 01/30/19 Losartan Potassium [Cozaar] 25 mg PO DAILY #30 tablet 01/30/19 Losartan Potassium [Cozaar] 50 mg PO DAILY #30 tablet 01/30/19 Potassium Chloride [K-Dur] 20 meq PO ONCE 01/30/19 Transfer Form Completed: No Disposition Discussed With: Patient, Family
[2019-02-03] MEDS ORDERED: TYLENOL PO PRN (03:41)
[2019-02-03] MEDS ORDERED: PROAIR HFA IH PRN (03:49)
[2019-02-03] MEDS ORDERED: MIRALAX PO PRN (03:49)
[2019-02-03] MEDS ORDERED: TRANDATE IVP PRN (03:52)
[2019-02-03] MEDS ORDERED: PHENERGAN 25 MG/ML VIAL ONE (04:00)
[2019-02-03 04:34] VITALS: BMI 22.6
[2019-02-03] MEDS: ARTIFICIAL TEARS OPTH SOL OP PRN ×2 (05:10→13:00)
[2019-02-03] MEDS: LASIX TAB PO SCH (05:58)
[2019-02-03] MEDS: PRILOSEC PO SCH (05:58)
[2019-02-03] MEDS: PREDNISONE PO SCH ×2 (08:30→16:50)
[2019-02-03] MEDS: BETAPACE PO SCH ×3 (08:30→20:35)
[2019-02-03] MEDS: MICRO-K CAP PO SCH (08:30)
[2019-02-03] MEDS: FOLIC ACID PO SCH (08:31)
[2019-02-03] MEDS: COZAAR PO SCH (08:31)
[2019-02-03] MEDS: ZOCOR PO SCH (08:31)
[2019-02-03] MEDS: CARDIZEM CD PO SCH ×2 (08:34→20:35)
[2019-02-03] MEDS: LOVENOX SUBCUT SCH (08:36)
[2019-02-03] MEDS ORDERED: NON-FORMULARY MEDICATION (Simvastatin [Zocor] 20 MG) PO SCH (09:00)
[2019-02-03] MEDS ORDERED: COZAAR PO SCH (09:00)
[2019-02-03] MEDS ORDERED: DILTIAZEM HCL 120 MG PO SCH (09:00)
[2019-02-03] MEDS ORDERED: K-DUR PO SCH (09:00)
[2019-02-03] MEDS: TIOTROPIUM BROMIDE IH SCH (13:18)
[2019-02-03] MEDS: CYCLOSPORINE OP SCH ×2 (13:18→20:37)
[2019-02-03] MEDS: NON-FORMULARY MEDICATION (Lutein [Lutein] 20 MG) PO SCH (13:18)
[2019-02-03] MEDS ORDERED: XOPENEX 1.25 MG NEB PRN (15:25)
[2019-02-03] MEDS: BENADRYL PO SCH (20:35)
[2019-02-03] MEDS: TYLENOL PO SCH (20:35)
[2019-02-04] MEDS: TYLENOL PO SCH ×2 (03:05→21:06)
[2019-02-04] MEDS: BENADRYL PO SCH ×2 (03:05→21:07)
[2019-02-04] MEDS: PRILOSEC PO SCH (05:44)
[2019-02-04] MEDS: LASIX TAB PO SCH (05:44)
[2019-02-04] MEDS: ZOCOR PO SCH (08:46)
[2019-02-04] MEDS: COZAAR PO SCH (08:46)
[2019-02-04] MEDS: BETAPACE PO SCH ×3 (08:46→21:07)
[2019-02-04] MEDS: MICRO-K CAP PO SCH (08:46)
[2019-02-04] MEDS: CARDIZEM CD PO SCH ×2 (08:46→21:06)
[2019-02-04] MEDS: PREDNISONE PO SCH ×2 (08:46→16:29)
[2019-02-04] MEDS: FOLIC ACID PO SCH (08:47)
[2019-02-04] MEDS: CYCLOSPORINE OP SCH ×2 (08:48→21:08)
[2019-02-04] MEDS: NON-FORMULARY MEDICATION (Lutein [Lutein] 20 MG) PO SCH (08:49)
[2019-02-04] MEDS: TIOTROPIUM BROMIDE IH SCH (08:51)
[2019-02-04] MEDS: LOVENOX SUBCUT SCH (08:53)
[2019-02-04] MEDS ORDERED: RHEUMATREX PO SCH ×2 (09:00)
[2019-02-04] MEDS: MORPHINE 2 MG/ML SYRINGE IVP PRN (16:37)
[2019-02-05] MEDS: BENADRYL PO SCH ×2 (04:23→21:15)
[2019-02-05] MEDS: TYLENOL PO SCH ×2 (04:23→21:13)
[2019-02-05] MEDS: PRILOSEC PO SCH (06:05)
[2019-02-05] MEDS: LASIX TAB PO SCH (06:05)
[2019-02-05] MEDS: NON-FORMULARY MEDICATION (Lutein [Lutein] 20 MG) PO SCH (08:24)
[2019-02-05] MEDS: CYCLOSPORINE OP SCH ×2 (08:24→21:18)
[2019-02-05] MEDS: PREDNISONE PO SCH ×2 (08:25→17:12)
[2019-02-05] MEDS: FOLIC ACID PO SCH (08:25)
[2019-02-05] MEDS: MICRO-K CAP PO SCH (08:26)
[2019-02-05] MEDS: COZAAR PO SCH (08:26)
[2019-02-05] MEDS: ZOCOR PO SCH (08:26)
[2019-02-05] MEDS: BETAPACE PO SCH ×3 (08:26→21:12)
[2019-02-05] MEDS: TIOTROPIUM BROMIDE IH SCH (08:27)
[2019-02-05] MEDS: CARDIZEM CD PO SCH ×2 (08:28→21:12)
[2019-02-05] MEDS: LOVENOX SUBCUT SCH (08:29)
--- NOTE | 2019-02-05 09:05 | PCM.PROG ---
Attending Provider: ATTENDING PROVIDER: Dr. NILAY ROSENTHAL This patient is seen with Janna Newby, Nurse Practitioner. DATE OF SERVICE: 02/05/19 SUBJECTIVE: This 83 year old WHITE/ F was hospitalized 02/03/19. The patient is resting comfortably. Blood pressure has been controlled. The patient had some back pain but does have chronic pain from rheumatoid arthritis. REVIEW OF SYSTEMS: CONSTITUTIONAL: No night sweats. No fatigue, malaise, lethargy. No fever or chills. HEENT: Eyes: No visual changes. No eye pain. No eye discharge. ENT: No runny nose. No epistaxis. No sinus pain. No odynophagia. No congestion. RESPIRATORY: No cough, no congestion. No hemoptysis. No shortness of breath. CARDIOVASCULAR: No angina symptoms. No CHF symptoms. No atypical chest pain for CAD. No palpitations. No orthopnea.. GASTROINTESTINAL: No abdominal pain. No nausea or vomiting. No diarrhea or constipation. No hematemesis. No hematochezia. GENITOURINARY: No urgency. No frequency. No dysuria. No hematuria. No obstructive symptoms. No discharge. No pain. No significant abnormal bleeding. MUSCULOSKELETAL: No musculoskeletal pain; no joint swelling. Back Pain. NEUROLOGICAL: Awake, alert, oriented to time, place and person. No headache. No neck pain. No syncope. No seizures. No dizziness. PSYCHIATRIC: Not anxious. No depression. No suicidal thoughts. No homicidal thoughts. SKIN: No rash. No lesions. No wounds. ENDOCRINE: No unexplained weight loss. No weight gain. HEMATOLOGIC/LYMPHATIC: No anemia. No purpura. No petechiae. No prolonged or excessive bleeding. No palpable lymph nodes. PHYSICAL EXAMINATION: GENERAL: The patient is awake, alert and oriented, lying in bed in no distress. VITAL SIGNS: Temperature 97.9 F, Pulse 62, Respiratory Rate 12, BP 137/67, Pulse Ox 99% HEENT: Head normocephalic, atraumatic. Eyes: Extraocular muscles are intact. Pupils are equal, round and reactive to light and accommodation. Ears: No lesions. Nose appeared normal. Throat: No exudate or erythema. NECK: Supple. No JVD, no carotid bruit. No lymphadenopathy or thyromegaly. LUNGS: Decreased breath sounds. Clear to auscultation. Percussion note normal. Chest symmetrical. HEART: S1, S2, no S3. I/ murmur. No cyanosis or clubbing. No ascites. Pulses: Dorsalis pedis and posterior tibial pulses +1 to +2 both sides. ABDOMEN: Soft. Non-tender. Bowel sounds active. No CVA tenderness. No mass felt. EXTREMITIES: Trace bilateral lower extremity edema. Full range of motion of all extremities, equal. NEUROLOGIC: No focal deficit. Cranial nerves II through XII are grossly intact. No headache, no double vision or headache. SKIN: Not dry. Intact. Turgor-normal. LYMPHATIC: No palpable lymph nodes/no lymphedema. MUSCULOSKELETAL: Normal joints with no swelling. Muscle tone is normal. LAB REVIEW: 02/05/19 04:15 02/05/19 04:15 02/05/19 04:15: Sodium 130.8 L, Potassium 4.03, Chloride 100.0, Carbon Dioxide 25.2, Anion Gap 9.63, BUN 31.0 H, Creatinine 0.67, Estimated GFR (MDRD) 84.00, BUN/Creatinine Ratio 46.26, Glucose 122.8 H, Calcium 8.85, Total Bilirubin 0.40 , AST 14.3, ALT 18.1, Alkaline Phosphatase 183.9 H, Total Protein 4.96 L, Albumin 2.94 L, Globulin 2.02, Albumin/Globulin Ratio 1.45 02/05/19 04:15: WBC 11.52 H, RBC 2.53 L, Hgb 9.6 L, Hct 28.0 L, MCV 110.7 H, MCH 37.9 H, MCHC 34.3, RDW Coeff of Timothy 14.4, Plt Count 280, Immature Gran % ( Auto) 1.4, Neut % (Auto) 83.8, Lymph % (Auto) 4.7 L, [place] % (Auto) 9.5, Eos % ( Auto) 0.4, Baso % (Auto) 0.2, Immature Gran # (Auto) 0.2, Neut # (Auto) 9.7 H, Lymph # (Auto) 0.5 L, [place] # (Auto) 1.1, Eos # (Auto) 0.1, Baso # (Auto) 0.0, Anisocytosis Not present, Macrocytosis 1+ ASSESSMENT: Please see below. 1. Hypertension, controlled 2. Chronic pain 3. Rheumatoid arthritis 4. 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 Continue to monitor blood pressure 2. Anticipate discharge home tomorrow. Plan and coordination of the patient's care discussed in the presence of [employer] and nurse. SCRIBED BY: Yolanda SIDDIQI scribed while in presence of service performed by Dr. Rosenthal/Janna Newby APRN on 02/05/19 ([id number])
[2019-02-05] MEDS ORDERED: MIRALAX PO PRN (13:30)
[2019-02-05] MEDS ORDERED: PROAIR HFA IH PRN (13:30)
[2019-02-05] MEDS: MORPHINE 2 MG/ML SYRINGE IVP PRN (17:26)
[2019-02-06] MEDS: BENADRYL PO SCH (03:03)
[2019-02-06] MEDS: TYLENOL PO SCH (03:03)
[2019-02-06] MEDS ORDERED: LASIX TAB PO SCH (06:30)
[2019-02-06] MEDS ORDERED: PRILOSEC PO SCH (06:30)
[2019-02-06] MEDS ORDERED: MICRO-K CAP PO SCH (08:00)
[2019-02-06] MEDS ORDERED: ZOCOR PO SCH (09:00)
[2019-02-06] MEDS ORDERED: FOLIC ACID PO SCH (09:00)
[2019-02-06] MEDS ORDERED: COZAAR PO SCH ×2 (09:00→09:30)
[2019-02-06] MEDS: NON-FORMULARY MEDICATION (Lutein [Lutein] 20 MG) PO SCH (09:03)
[2019-02-06] MEDS: CYCLOSPORINE OP SCH (09:06)
[2019-02-06] MEDS: LOVENOX SUBCUT SCH (09:08)
[2019-02-06] MEDS: TIOTROPIUM BROMIDE IH SCH (09:16)
[2019-02-06] MEDS: PREDNISONE PO SCH (09:26)
[2019-02-06] MEDS: BETAPACE PO SCH ×2 (09:26→14:01)
[2019-02-06] MEDS: CARDIZEM CD PO SCH (09:26)
--- NOTE | 2019-02-06 10:36 | PCM.PROG ---
Attending Provider: ATTENDING PROVIDER: Dr. NILAY ROSENTHAL This patient is seen with Janna Newby, Nurse Practitioner. DATE OF SERVICE: 02/06/19 SUBJECTIVE: This 83 year old WHITE/ F was hospitalized 02/03/19. The patient is resting comfortably. She states that she is feeling better. Back pain has improved. Hypertension is controlled. REVIEW OF SYSTEMS: CONSTITUTIONAL: No night sweats. Fatigue. No fever or chills. HEENT: Eyes: No visual changes. No eye pain. No eye discharge. ENT: No runny nose. No epistaxis. No sinus pain. No odynophagia. No congestion. RESPIRATORY: No cough, no congestion. No hemoptysis. No shortness of breath. CARDIOVASCULAR: No angina symptoms. No CHF symptoms. No atypical chest pain for CAD. No palpitations. No orthopnea.. GASTROINTESTINAL: No abdominal pain. No nausea or vomiting. No diarrhea or constipation. No hematemesis. No hematochezia. GENITOURINARY: No urgency. No frequency. No dysuria. No hematuria. No obstructive symptoms. No discharge. No pain. No significant abnormal bleeding. MUSCULOSKELETAL: No musculoskeletal pain; no joint swelling. NEUROLOGICAL: Awake, alert, oriented to time, place and person. No headache. No neck pain. No syncope. No seizures. No dizziness. PSYCHIATRIC: Not anxious. No depression. No suicidal thoughts. No homicidal thoughts. SKIN: No rash. No lesions. No wounds. ENDOCRINE: No unexplained weight loss. No weight gain. HEMATOLOGIC/LYMPHATIC: No anemia. No purpura. No petechiae. No prolonged or excessive bleeding. No palpable lymph nodes. PHYSICAL EXAMINATION: GENERAL: The patient is awake, alert and oriented, lying/sitting in bed in no distress. VITAL SIGNS: Temperature 97.9 F, Pulse 56, Respiratory Rate 16, BP 128/67, Pulse Ox 98% HEENT: Head normocephalic, atraumatic. Eyes: Extraocular muscles are intact. Pupils are equal, round and reactive to light and accommodation. Ears: No lesions. Nose appeared normal. Throat: No exudate or erythema. NECK: Supple. No JVD, no carotid bruit. No lymphadenopathy or thyromegaly. LUNGS: Diminished breath sounds. Clear to auscultation. Percussion note normal. Chest symmetrical. HEART: S1, S2, no S3. No murmurs. No cyanosis or clubbing. No ascites. Pulses: Dorsalis pedis and posterior tibial pulses +1 to +2 both sides. ABDOMEN: Soft. Non-tender. Bowel sounds active. No CVA tenderness. No mass felt. EXTREMITIES: No edema. Full range of motion of all extremities, equal. NEUROLOGIC: No focal deficit. Cranial nerves II through XII are grossly intact. No headache, no double vision or headache. SKIN: Not dry. Intact. Turgor-normal. LYMPHATIC: No palpable lymph nodes/no lymphedema. MUSCULOSKELETAL: Normal joints with no swelling. Muscle tone is normal. LAB REVIEW: 02/06/19 05:00 02/06/19 05:00 02/06/19 05:00: Sodium 132.0 L, Potassium 4.06, Chloride 100.2, Carbon Dioxide 27.0, Anion Gap 8.86, BUN 26.5 H, Creatinine 0.67, Estimated GFR (MDRD) 84.00, BUN/Creatinine Ratio 39.55, Glucose 114.3 H, Calcium 9.35, Total Bilirubin 0.60 , AST 19.9, ALT 22.0, Alkaline Phosphatase 181.7 H, Total Protein 5.27 L, Albumin 3.12 L, Globulin 2.15, Albumin/Globulin Ratio 1.45 02/06/19 05:00: WBC 7.67, RBC 2.61 L, Hgb 9.9 L, Hct 28.5 L, MCV 109.2 H, MCH 37.9 H, MCHC 34.7, RDW Coeff of Timothy 14.0, Plt Count 306, Immature Gran % (Auto) 1.6, Neut % (Auto) 81.2, Lymph % (Auto) 7.6 L, [place] % (Auto) 9.0, Eos % (Auto) 0.5, Baso % (Auto) 0.1, Immature Gran # (Auto) 0.1, Neut # (Auto) 6.2, Lymph # ( Auto) 0.6, Gladwin # (Auto) 0.7, Eos # (Auto) 0.0, Baso # (Auto) 0.0, Anisocytosis Not present, Macrocytosis 1+, Spherocytes 1+ ASSESSMENT: Please see below. 1. Hypertension, controlled 2. Intractable back pain, controlled. 3. Chronic anemia 4. Rheumatoid arthritis. PLAN: 1. Discharge home. 2. Cozaar 100mg daily 3. Toradol 10mg 4. Advised not to take Ibuprofen because of chronic kidney disease, GI bleed and peptic ulcer disease 5. Followup next week. Plan and coordination of the patient's care discussed in the presence of [employer] Worker and nurse. SCRIBED BY: MELIA STALLWORTH Math Instructor scribed while in presence of service performed by Dr. Rosenthal/Janna Newby APRN on 02/06/19 ([id number])
--- NOTE | 2019-02-06 10:54 | PN ---
DATE OF SERVICE: 02/03/19 SUBJECTIVE: 83-year-old white female hospitalized with hypertensive urgency. The patient's systolic blood pressure was 200. The patient is feeling a lot better. Her blood pressure is 143/61. She is on Cozaar now extra 100 mg which has been given along with her Clonidine, Diltiazem, Sotalol. EKG sinus rhythm. No acute changes. PHYSICAL EXAMINATION: HEENT: Head normocephalic, atraumatic. Eyes: Extraocular muscles are intact. Pupils are equal, round and reactive to light and accommodation. Ears: No lesions. Nose appeared normal. Throat: No exudate or erythema. NECK: Supple. No JVD, no carotid bruit. No lymphadenopathy or thyromegaly. LUNGS: Clear to auscultation. No evidence of fluid overload. Percussion note normal. Chest symmetrical. HEART: S1, S2, no S3. No murmurs. No cyanosis or clubbing. No ascites. Pulses: Dorsalis pedis and posterior tibial pulses +1 to +2 bilaterally. ABDOMEN: Soft. Nontender. Bowel sounds active. No CVA tenderness. No mass felt. EXTREMITIES: No edema. Full range of motion of all extremities, equal. NEUROLOGIC: No focal deficit. Cranial nerves II through XII are grossly intact. No headache, no double vision or headache. SKIN: Not dry. Intact. Turgor - normal. LYMPHATIC: No palpable lymph nodes/no lymphedema. MUSCULOSKELETAL: Normal joints with no swelling. Muscle tone is normal. ASSESSMENT: 1. She is short of breath on minimal exertion mostly because of chronic lung disease. PLAN: 1. The patient is going to be monitored. Appetite has improved. 2. She will be started on Xopenex. 3. Cardiovascular and respiratory status stable. CONDITION: Stable. TIME SPENT: More than 30 minutes. Plan and coordination of the patient's care discussed in the presence of nurse. JOHN
--- NOTE | 2019-02-06 11:08 | PN ---
DATE OF SERVICE: 02/04/19 SUBJECTIVE: 83-year-old white female hospitalized with hypertensive urgency. The patient's condition has improved. She is breathing better. She is still short of breath. Breathing treatments are helping. She has chronic lung disease and is followed by a lung specialist. She also has back muscle spasm in the middle of the back. She wants Morphine to be tried which the neurosurgeon that takes care of the patient in [place] talked about giving 1 to 2 mg Morphine Sulfate and see how she does. Again, the side effects of Morphine Sulfate discussed with the patient with having risk of fall. The daughter is getting in [place] and the patient is anxious to get better. REVIEW OF SYSTEMS: CONSTITUTIONAL: No night sweats. No fatigue, malaise, lethargy. No fever or chills. HEENT: Eyes: No visual changes. No eye pain. No eye discharge. ENT: No runny nose. No epistaxis. No sinus pain. No sore throat. No odynophagia. No congestion. RESPIRATORY: No cough, no congestion. No hemoptysis. No shortness of breath. CARDIOVASCULAR: No angina symptoms. No CHF symptoms. No atypical chest pain for CAD. No palpitations. No PND. No orthopnea. GASTROINTESTINAL: No abdominal pain. No nausea or vomiting. No diarrhea or constipation. No hematemesis. No hematochezia. GENITOURINARY: No urgency. No frequency. No dysuria. No hematuria. No obstructive symptoms. No discharge. No pain. No significant abnormal bleeding. MUSCULOSKELETAL: No musculoskeletal pain; no joint swelling. NEUROLOGICAL: No headache. No neck pain. No syncope. No seizures. No dizziness. PSYCHIATRIC: Not anxious. No depression. No suicidal thoughts. No homicidal thoughts. SKIN: No rash. No lesions. No wounds. ENDOCRINE: No unexplained weight loss. No weight gain. HEMATOLOGIC/LYMPHATIC: No anemia. No purpura. No petechiae. No prolonged or excessive bleeding. No palpable lymph nodes. PHYSICAL EXAMINATION: VITAL SIGNS: Temperature 98, pulse 59, respiratory rate 18, blood pressure 135/ 58, pulse ox 99% on room air. HEENT: Head normocephalic, atraumatic. Eyes: Extraocular muscles are intact. Pupils are equal, round and reactive to light and accommodation. Ears: No lesions. Nose appeared normal. Throat: No exudate or erythema. NECK: Supple. No JVD, no carotid bruit. No lymphadenopathy or thyromegaly. LUNGS: Decreased breath sounds but clear to auscultation. Percussion note normal. Chest symmetrical. HEART: S1, S2, no S3. No murmurs. No cyanosis or clubbing. No ascites. Pulses: Dorsalis pedis and posterior tibial pulses +1 to +2 bilaterally. ABDOMEN: Soft. Nontender. Bowel sounds active. No CVA tenderness. No mass felt. EXTREMITIES: No edema. Full range of motion of all extremities, equal. NEUROLOGIC: No focal deficit. Cranial nerves II through XII are grossly intact. No headache, no double vision or headache. SKIN: Not dry. Intact. Turgor - normal. LYMPHATIC: No palpable lymph nodes/no lymphedema. MUSCULOSKELETAL: Normal joints with no swelling. Muscle tone is normal. LABS: Hemoglobin 9.4, hematocrit 27, WBC 8,800, normal differential. Creatinine 0.6, BUN 33, potassium 4.2. ASSESSMENT: 1. DEHYDRATION SEEMS TO HAVE RESOLVED. 2. HYPERTENSIVE CRISIS SEEMS TO BE UNDER CONTROL. BLOOD PRESSURE IS UNDER CONTROL. COZAAR SEEMS TO BE HELPING. THE PATIENT SELF-MEDICATES AT TIMES AND FORGETS TO TAKE HER MEDICATIONS ACCORDING TO THE DAUGHTER. PLAN: Will treat the patient's pain with Morphine if it is tolerated. Side effects and fall risks is going to be increased. The patient wants comfort but does not want pain. According to the patient, pain is a terrible thing to have. She says that she doesn't want to live life, whatever she has remaining years left to be in this much pain. The patient advised pain management. She has declined. She is going to see also a neurosurgeon who is going to start her on Morphine anyway according to her. CONDITION: Stable. TIME SPENT: More than 30 minutes. Plan and coordination of the patient's care discussed in the presence of nurse. JOHN
--- NOTE | 2019-02-06 11:40 | PN ---
DATE OF SERVICE: 02/05/19 SUBJECTIVE: The patient was seen and examined with the nurse practitioner. The patient's blood pressure is staying stable. Cardiovascular status and respiratory status is stable. She is on Xopenex q.i.d. TIME SPENT: More than 30 minutes. Plan and coordination of the patient's care discussed in the presence of nurse. JOHN
--- NOTE | 2019-02-06 12:28 | CM.DICTOOL ---
ADMISSION: 02/03/19 03:47 DISCHARGE: 02/06/19 DATE OF SERVICE: 02/06/19 FINAL DIAGNOSIS HYPERTENSION, CONTROLLED INTRACTABLE BACK PAIN, CONTROLLED HYPONATREMIA, IMPROVING CHRONIC ANEMIA, R/T METHOTREXATE CORONARY ARTERY DISEASE ATRIAL FIB (TAKES BETAPACE) HYPERTENSION COPD (NON-SMOKER) DYSLIPIDEMIA GERD RHEUMATOID ARTHRITIS (DR. MENDOZA) BACK PAIN (PAIN MANAGEMENT, DR. ENRIQUEZ) DEPRESSION ANXIETY LUMBAR SURGERY BREAST BIOPSY CATARACT EXTRACTION ECHO 08/07/18: BORDERLINE LVH, VALVES NORMAL, NORMAL LV CONTRACTILITY, EF 56% PFT: SEVERE COPD LAST VITALS Temp Pulse Resp BP Pulse Ox 97.9 F 56 L 16 128/67 98 02/06/19 04:59 02/06/19 04:59 02/06/19 04:59 02/06/19 04:59 02/06/19 04:59 TAKE THESE MEDICATIONS AT HOME Acetaminophen (Tylenol) 1,000 mg PO 0300,2100 [facility] Last Admin: 02/06/19 03:03 Dose: 1,000 mg Albuterol Sulfate (Proair Hfa) 2 puff IH Q4H PRN PRN Reason: Wheezing Diltiazem HCl (Cardizem Cd) 120 mg PO BID [facility] Last Admin: 02/05/19 21:12 Dose: 120 mg Diphenhydramine HCl (Benadryl) 25 mg PO 0300,2100 [facility] Last Admin: 02/06/19 03:03 Dose: 25 mg Folic Acid (Folic Acid) 3 mg PO DAILY [facility] Furosemide (Lasix Tab) 20 mg PO QDAC [facility] Last Admin: 02/06/19 05:53 Dose: 20 mg Losartan Potassium (Cozaar) 100 mg PO DAILY [facility] Methotrexate (Rheumatrex) 15 mg PO Marino@0900 [facility] Last Admin: 02/04/19 10:01 Dose: Not Given Cyclosporine [Restasis] 2 each OP BID [facility] Last Admin: 02/05/19 21:18 Dose: 2 each Lutein [Lutein] 20 mg PO DAILY [facility] Last Admin: 02/05/19 08:24 Dose: 20 mg Tiotropium Olds [Spiriva Respimat] 2 inh IH DAILY [facility] Last Admin: 02/05/19 08:27 Dose: Not Given Omeprazole (Prilosec) 20 mg PO QDAC [facility] Last Admin: 02/06/19 05:53 Dose: 20 mg Polyethylene Glycol (Miralax) 17 gm PO DAILY PRN PRN Reason: Constipation Potassium Chloride (Micro-K Cap) 10 meq PO DAILYWM [facility] Prednisone (Prednisone) 5 mg PO BIDWM [facility] Last Admin: 02/05/19 17:12 Dose: 5 mg Simvastatin (Zocor) 20 mg PO DAILY [facility] Sotalol HCl (Betapace) 80 mg PO TID [facility] Last Admin: 02/05/19 21:12 Dose: 80 mg ALLERGIES certolizumab pegol [From Cimzia] Adverse Reaction (Verified 02/03/19 03:38) Hives chlorpheniramine [From Dristan] Adverse Reaction (Verified 02/03/19 03:38) codeine Adverse Reaction (Verified 02/03/19 03:38) duloxetine [From Cymbalta] Adverse Reaction (Verified 02/03/19 03:38) DIARRHEA/DRY HEAVES hydrocodone Adverse Reaction (Verified 02/03/19 03:38) ibandronate sodium [From Boniva] Adverse Reaction (Verified 02/03/19 03:38) imipramine HCl [From Tofranil] Adverse Reaction (Verified 02/03/19 03:38) oseltamivir phosphate [From Tamiflu] Adverse Reaction (Verified 02/03/19 03:38) oxymetazoline HCl [From Kelli] Adverse Reaction (Verified 02/03/19 03:38) pheniramine maleate [From Kelli] Adverse Reaction (Verified 02/03/19 03:38) phenylephrine HCl [From Kelli] Adverse Reaction (Verified 02/03/19 03:38) pseudoephedrine HCl [From Kelli] Adverse Reaction (Verified 02/03/19 03:38) ramipril [From Altace] Adverse Reaction (Verified 02/03/19 03:38) zolpidem tartrate [From Ambien] Adverse Reaction (Verified 02/03/19 03:38) TAPE Adverse Reaction (Uncoded 02/03/19 03:38) DISCONTINUED MEDICATIONS Discontinued Medications Losartan Potassium (Cozaar) 50 mg PO DAILY Ibuprofen (Motrin/Advil/IBU) 400mg PO Q6H PRN NEW PRESCRIPTIONS: TORADOL 10MG 1 TAB PO AT ONSET OF PAIN; MAY REPEAT Q8H PRN WITH MEALS. COZAAR 100MG PO DAILY SMOKING: NON SMOKER DISEASE SPECIFIC EDUCATION: HYPERTENSION PAIN MANAGEMENT FOLLOW-UP MEDICATIONS DISCONTINUE IBUPROFEN, ADVISE OF RISKS R/T PEPTIC ULCER DISEASE, GI BLEED, CHRONIC KIDNEY DISEASE LAB REVIEW: 02/06/19 05:00 02/06/19 05:00 02/06/19 05:00: Sodium 132.0 L, Potassium 4.06, Chloride 100.2, Carbon Dioxide 27.0, Anion Gap 8.86, BUN 26.5 H, Creatinine 0.67, Estimated GFR (MDRD) 84.00, BUN/Creatinine Ratio 39.55, Glucose 114.3 H, Calcium 9.35, Total Bilirubin 0.60 , AST 19.9, ALT 22.0, Alkaline Phosphatase 181.7 H, Total Protein 5.27 L, Albumin 3.12 L, Globulin 2.15, Albumin/Globulin Ratio 1.45 02/06/19 05:00: WBC 7.67, RBC 2.61 L, Hgb 9.9 L, Hct 28.5 L, MCV 109.2 H, MCH 37.9 H, MCHC 34.7, RDW Coeff of Timothy 14.0, Plt Count 306, Immature Gran % (Auto) 1.6, Neut % (Auto) 81.2, Lymph % (Auto) 7.6 L, Gray % (Auto) 9.0, Eos % (Auto) 0.5, Baso % (Auto) 0.1, Immature Gran # (Auto) 0.1, Neut # (Auto) 6.2, Lymph # ( Auto) 0.6, Gray # (Auto) 0.7, Eos # (Auto) 0.0, Baso # (Auto) 0.0, Anisocytosis Not present, Macrocytosis 1+, Spherocytes 1+ PLAN: DISCHARGE HOME TODAY, 02/06/19 DIET: REGULAR DIET ACTIVITY: INDEPENDENT, UP AD VENKAT HAS ROLLING WALKER AND OXYGEN AT HOME FOLLOW-UP APPOINTMENTS: DR. ROSENTHAL MONDAY MARCH 04, 2019 @ 2:30PM CODE STATUS: DO NOT RESUSCITATE MRS. HUTCHINSON IS ALERT AND ORIENTED X3, SHE IS AGREEABLE WITH THE PLAN TO DISCHARGE HOME TODAY. HER BLOOD PRESSURES HAVE BEEN CONTROLLED. PLAN TO FOLLOW UP WITH ME IN THE OFFICE IN ONE WEEK. EDUCATED ON MEDICATION MANAGEMENT. ADVISED TO DISCONTINUE TAKING IBUPROFEN 400MG PO Q6H SCHEDULED DUE TO RISKS OF PEPTIC ULCER DISEASE, GI BLEED, AND CHRONIC KIDNEY DISEASE. PT C/O CHRONIC PAIN AND THAT SHE HAS SEEN PAIN MANAGEMENT IN THE PAST, SHE ASKED FOR AT HOME MORPHINE AND WAS EDUCATED THAT WE ARE UNABLE TO SEND HER HOME WITH THIS. WILL PRESCRIBE NEEDED TORADOL 10MG TAKE ONE AT ONSET OF PAIN, MAY REPEAT IN 8 HOURS IF NEEDED WITH MEALS. DISCUSSED AND PROVIDED EDUCATION THAT CHRONIC PAIN CAN FURTHER EFFECT HER BLOOD PRESSURE. PLAN TO INCREASE COZAAR FROM 50MG TO 100MG DAILY. EDUCATE TO TAKE CLONIDINE PRN FOR SYSTOLIC BLOOD PRESSURE >150. BREATH SOUNDS ARE CLEAR AND DIMINISHED. BOWEL SOUNDS ACTIVE, ABDOMEN IS SOFT AND NONTENDER. SKIN IS INTACT WITH ADEQUATE HYDRATION STATUS. MD KELLI MORLAES, FISH CLEANER MACHINE TENDER
--- NOTE | 2019-02-06 13:54 | HP ---
DATE OF SERVICE: 02/03/19 REASON FOR HOSPITALIZATION/HISTORY OF PRESENT ILLNESS: 83 year old white female who presents to the emergency room complaining her blood pressure is out of control. She was previously in the emergency room approximately three days ago for elevated blood pressure. She did have 1+ bacteria in her urine and was not treated. She did have a low grade fever at that time. PAST MEDICAL HISTORY: Dyslipidemia Coronary artery disease Hypertension Rheumatoid arthritis Polyarthritis Degenerative joint disease Multiple back surgeries Dizziness GERD Dry eye Chronic lung disease Leg edema Recurrent hives PAST SURGICAL HISTORY: Multiple back surgeries Breast biopsy REVIEW OF SYSTEMS: CONSTITUTIONAL: No night sweats. Fatigue. No fever or chills. HEENT: Eyes: No visual changes. No eye pain. No eye discharge. ENT: No runny nose. No epistaxis. No sinus pain. No sore throat. No odynophagia. No ear pain. No congestion. RESPIRATORY: No cough, no congestion. No hemoptysis. No shortness of breath. CARDIOVASCULAR: No angina symptoms. No CHF symptoms. No atypical chest pain for CAD. No palpitations. No PND. No orthopnea. GASTROINTESTINAL: No abdominal pain. Nausea. No diarrhea or constipation. No hematemesis. No hematochezia. GENITOURINARY: No urgency. No frequency. No dysuria. No hematuria. No obstructive symptoms. No discharge. No pain. No significant abnormal bleeding. MUSCULOSKELETAL: No musculoskeletal pain. No joint swelling. No arthritis. Weakness. NEUROLOGICAL: Headache. No neck pain. No syncope. No seizures. No dizziness. PSYCHIATRIC: Not anxious. No depression. No suicidal thoughts. No homicidal thoughts. SKIN: No rash. No lesions. No wounds. ENDOCRINE: No unexplained weight loss. No weight gain. HEMATOLOGIC/LYMPHATIC: No anemia. No purpura. No petechiae. No prolonged or excessive bleeding. No palpable lymph nodes. PERSONAL/FAMILY/SOCIAL HISTORY: The patient is nonsmoker, no alcohol or illicit drug use. She is . She lives at home with her daughter. MEDICATIONS: Prilosec 20mg PO QDAC Restasis two each OP twice a day Catapres 0.1mg PO daily PRN Zocor 20mg PO daily Miralax 17gram PO daily PRN Cardizem LA 120mg PO twice a day Probiotic one each PO daily PRN Ibuprofen 400mg PO Q 6 hours PRN ProAir 2 puff IH Q 4 hours PRN Sotalol 80mg PO three times a day Lutein 20mg PO daily Prednisone 5mg PO twice a day Methotrexate 6 tablet PO [place]STA[place] Spiriva Respimat two inhalation IH daily Diphenhydramine HCL 25mg PO 0300, 2100 Acetaminophen 1,000mg PO 0300, 2100 K-Dur 10meq PO daily Lasix 20mg PO QDAC Cozaar 50mg Po daily Folic acid 1mg three tablet PO daily ALLERGIES: Certolizumab pegol Chlorpheniramine Codeine Duloxetine Hydrocodone Ibandronate sodium Imipramine Oseltamivir phosphate Oxymetazoline Pheniramine maleate Phenylephrine Pseudoephedrine Ramipril Zolpidem TAPE PHYSICAL EXAMINATION: VITAL SIGNS: Temperature 97.6, heart rate 62, respiratory rate 20, blood pressure 140/61, oxygen saturation 94% on room air. blood pressure up to 190 prior to the emergency room. She took two Clonidine. HEENT: Head normocephalic, atraumatic. Eyes: Extraocular muscles are intact. Pupils are equal, round and reactive to light and accommodation. Ears: No lesions. Nose appeared normal. Throat: No exudate or erythema. NECK: Supple. No JVD, no carotid bruit. No lymphadenopathy or thyromegaly. LUNGS: Diminished breath sounds bilaterally. Clear to auscultation. Percussion note normal. Chest symmetrical. HEART: S1, S2, no S3. No murmurs. No cyanosis or clubbing. No ascites. Pulses: Dorsalis pedis and posterior tibial pulses +1 to +2 bilaterally. ABDOMEN: Soft. Nontender. Bowel sounds active. No CVA tenderness. No mass felt. EXTREMITIES: Trace bilateral leg edema. Full range of motion of all extremities, equal. NEUROLOGIC: No focal deficit. Cranial nerves II through XII are grossly intact. No headache, no double vision or headache. SKIN: Not dry. Intact. Turgor - normal. LYMPHATIC: No palpable lymph nodes/no lymphedema. MUSCULOSKELETAL: Normal joints with no swelling. Muscle tone is normal. LABS: WBC 13.28, hgb 10.4, hct 30.8, plt count 343, sodium 132, potassium 4.2, BUN 28 , creatinine 0.71, glucose 143, GFR 79, AST 22, ALT 20, Total protein 5.7, Albumin 3.49, Alkaline phosphatase 225. Urine shows 2+ leukocytes, no blood. ASSESSMENT: 1. Hypertension 2. Abnormal U/A, urine culture pending 3. Generalized weakness 4. Dehydration 5. Rheumatoid arthritis PLAN: 1. We will admit 2. Routine telemetry orders 3. CBC and CMP daily 4. Urine for culture and sensitivity 5. Rocephin 1 gram IV daily 6. Vasotec 1.25mg PRN Q 8 hours for hypertension 7. Increase Cozaar to 100mg PO daily 8. Continue home medication 9. Oxygen at 1-2 liters as needed 10.Chest x-ray We will follow closely. TIME SPENT: More than 70 minutes. MTDD
[2019-02-06 15:03] VITALS: BP 122/68; TEMP 98.6
--- NOTE | 2019-02-08 13:14 | DS ---
DATE OF SERVICE: 02/06/19 FINAL DIAGNOSIS: HYPERTENSION, CONTROLLED INTRACTABLE BACK PAIN, CONTROLLED HYPONATREMIA, IMPROVING CHRONIC ANEMIA, R/T METHOTREXATE CORONARY ARTERY DISEASE ATRIAL FIB (TAKES BETAPACE) HYPERTENSION COPD (NON-SMOKER) DYSLIPIDEMIA GERD RHEUMATOID ARTHRITIS (DR. MENDOZA) BACK PAIN (PAIN MANAGEMENT, DR. ENRIQUEZ) DEPRESSION ANXIETY LUMBAR SURGERY BREAST BIOPSY CATARACT EXTRACTION ECHO 08/07/18: BORDERLINE LVH, VALVES NORMAL, NORMAL LV CONTRACTILITY, EF 56% PFT: SEVERE COPD LAST VITALS: Temp Pulse Resp BP Pulse Ox 97.9 F 56 L 16 128/67 98 02/06/19 04:59 02/06/19 04:59 02/06/19 04:59 02/06/19 04:59 02/06/19 04:59 DISCHARGE INSTRUCTIONS: DISCHARGE HOME TODAY, 02/06/19. FOLLOW-UP APPOINTMENTS: DR. ROSENTHAL , MONDAY MARCH 04, 2019 @ 2:30PM CODE STATUS: DO NOT RESUSCITATE TAKE THESE MEDICATIONS AT HOME: Acetaminophen (Tylenol) 1,000 mg PO 0300,2100 SU Albuterol Sulfate (Proair Hfa) 2 puff IH Q4H PRN Diltiazem HCl (Cardizem Cd) 120 mg PO BID SU Diphenhydramine HCl (Benadryl) 25 mg PO 0300,2100 SU Folic Acid (Folic Acid) 3 mg PO DAILY SU Furosemide (Lasix Tab) 20 mg PO QDAC SU Losartan Potassium (Cozaar) 100 mg PO DAILY SU Methotrexate (Rheumatrex) 15 mg PO Marino@0900 SU Cyclosporine [Restasis] 2 each OP BID SU Lutein [Lutein] 20 mg PO DAILY [facility] Tiotropium [place] [Spiriva Respimat] 2 inh IH DAILY SU Omeprazole (Prilosec) 20 mg PO QDAC SU Polyethylene Glycol (Miralax) 17 gm PO DAILY PRN Potassium Chloride (Micro-K Cap) 10 meq PO DAILYWM SU Prednisone (Prednisone) 5 mg PO BIDWM SU Simvastatin (Zocor) 20 mg PO DAILY SU Sotalol HCl (Betapace) 80 mg PO TID SU ALLERGIES: certolizumab pegol [From Cimzidanay] Adverse Reaction (Verified 02/03/19 03:38) chlorpheniramine [From Kelli] Adverse Reaction (Verified 02/03/19 03:38) codeine Adverse Reaction (Verified 02/03/19 03:38) duloxetine [From Cymbalta] Adverse Reaction (Verified 02/03/19 03:38) hydrocodone Adverse Reaction (Verified 02/03/19 03:38) ibandronate sodium [From Boniva] Adverse Reaction (Verified 02/03/19 03:38) imipramine HCl [From Tofranil] Adverse Reaction (Verified 02/03/19 03:38) oseltamivir phosphate [From Tamiflu] Adverse Reaction (Verified 02/03/19 03:38) oxymetazoline HCl [From Dristan] Adverse Reaction (Verified 02/03/19 03:38) pheniramine maleate [From Dristan] Adverse Reaction (Verified 02/03/19 03:38) phenylephrine HCl [From Dristan] Adverse Reaction (Verified 02/03/19 03:38) pseudoephedrine HCl [From Dristan] Adverse Reaction (Verified 02/03/19 03:38) ramipril [From Altace] Adverse Reaction (Verified 02/03/19 03:38) zolpidem tartrate [From Ambien] Adverse Reaction (Verified 02/03/19 03:38) TAPE Adverse Reaction (Uncoded 02/03/19 03:38) Discontinued Medications: Losartan Potassium (Cozaar) 50 mg PO DAILY Ibuprofen (Motrin/Advil/IBU) 400mg PO Q6H PRN NEW PRESCRIPTIONS: TORADOL 10MG 1 TAB PO AT ONSET OF PAIN; MAY REPEAT Q8H PRN WITH MEALS. COZAAR 100MG PO DAILY SMOKING: NON SMOKER DISEASE SPECIFIC EDUCATION: HYPERTENSION PAIN MANAGEMENT FOLLOW-UP MEDICATIONS DISCONTINUE IBUPROFEN, ADVISE OF RISKS R/T PEPTIC ULCER DISEASE, GI BLEED, CHRONIC KIDNEY DISEASE DIET: REGULAR DIET ACTIVITY: INDEPENDENT, UP AD VENKAT, HAS ROLLING WALKER AND OXYGEN AT HOME HOSPITAL COURSE: This is a 83 year old white female who presented with uncontrolled hypertension , intractable back pain, hyponatremia. She had previously been at the emergency room a few days before with similar symptoms and was sent home. She was admitted and placed on IV fluids with normal saline at 75cc an hour and increased her Cozaar to 100mg PO daily. After increasing her Cozaar her blood pressure remained controlled. She still did have a headache for a few days. She does have a history of degenerative disc disease and she has had multiple back surgeries. She did have to receive Morphine IV for back pain which did help it subside. She does have chronic anemia and takes Methotrexate due to Rheumatoid arthritis. Hgb has been stable; today 9.9. Kidney was slightly elevated initially today BUN 26, creatinine 0.67, blood pressure has been controlled today 128/67. She has not required Vasotec IV. We will continue on Cozaar 100mg daily as it seems to be controlling her blood pressure. She has been eating well and up and about. Vital signs. We will followup with her in the office next week. She is discharged in stable condition. TIME SPENT: More than 60 minutes. SHELBYD
--- NOTE | 2019-02-13 13:21 | PN ---
DATE OF SERVICE: 02/06/19 SUBJECTIVE: The patient was seen and examined with the Nurse Practitioner. The patient feeling a lot better. Blood pressure is under control. Cardiovascular and respiratory status is controlled. PHYSICAL EXAMINATION: HEENT: Head normocephalic, atraumatic. Eyes: Extraocular muscles are intact. Pupils are equal, round and reactive to light and accommodation. Ears: No lesions. Nose appeared normal. Throat: No exudate or erythema. NECK: Supple. No JVD, no carotid bruit. No lymphadenopathy or thyromegaly. LUNGS: Clear to auscultation. Percussion note normal. Chest symmetrical. HEART: S1, S2, no S3. No murmurs. No cyanosis or clubbing. No ascites. Pulses: Dorsalis pedis and posterior tibial pulses +1 to +2 bilaterally. ABDOMEN: Soft. Nontender. Bowel sounds active. No CVA tenderness. No mass felt. EXTREMITIES: No edema. Full range of motion of all extremities, equal. NEUROLOGIC: No focal deficit. Cranial nerves II through XII are grossly intact. No headache, no double vision or headache. SKIN: Not dry. Intact. Turgor - normal. LYMPHATIC: No palpable lymph nodes/no lymphedema. MUSCULOSKELETAL: Normal joints with no swelling. Muscle tone is normal. PLAN: 1. The patient is going to be discharged home 2. Medications discussed CONDITION: Stable. TIME SPENT: More than 30 minutes. Plan and coordination of the patient's care discussed in the presence of nurse. JOHN
--- NOTE | 2019-02-13 13:22 | PN ---
02/03/19: Level 5 02/04/19: Intermediate 02/05/19: Intermediate 02/06/19: D as in discharge MTDD
== END 2019-02-06 17:25 | disposition home or self-care (01) ==
LOC: ED 02:25 → MEDSURG B 03:47 → INTOOBSV 03:47
PROVIDERS: ADMIT Internal Medicine; ATTEND Internal Medicine
DX: D64.9 Anemia, unspecified (principal); E87.1 Hypo-osmolality and hyponatremia; I25.10 Atherosclerotic heart disease of native coronary artery without angina pectoris; I48.91 Unspecified atrial fibrillation; J44.9 Chronic obstructive pulmonary disease, unspecified; K21.9 Gastro-esophageal reflux disease without esophagitis; M54.9 Dorsalgia, unspecified; M06.9 Rheumatoid arthritis, unspecified; E86.0 Dehydration; E78.5 Hyperlipidemia, unspecified; F41.9 Anxiety disorder, unspecified; F32.9 Major depressive disorder, single episode, unspecified; R53.1 Weakness; R06.02 Shortness of breath; Z79.01 Long term (current) use of anticoagulants
CPT/HCPCS: 36415; 80053; 81001; 85008; 85025; 87086; 93005; 93010; 96374; 96376; 99285

== ENCOUNTER 2019-03-04 16:36 | Inpatient (IN) ==
--- NOTE | 2019-03-04 17:00 | ED.PDOC ---
General Stated Complaint: Swollen ankles Time Seen by Physician: 17:00 Mode of Arrival: Wheelchair Information Source: Patient Exam Limitations: No limitations Nursing and Triage Documentation Reviewed and Agree: Yes Does patient meet sepsis criteria?: No If yes, has appropriate treatment been initiated?: Yes System Inflammatory Response Syndrome: Not Applicable <JOHN PAUL JAVIER - Last Filed: 03/04/19 18:03> <NGOZIJOHN PAUL - Last Filed: 03/05/19 06:47> ED Provider: Dr. JOHN PAUL DUONGREINA Chief Complaint: Shortness of Air Primary Care Provider: NILAY ROSENTHAL Sepsis Protocol: For patient's 13 years and over: Temp is 96.8 and below OR 101 and greater Pulse >90 BPM Resp >20/minute Acutely Altered Mental Status Are patient's symptoms suggestive of a new infection, such as: -Pneumonia -Skin, Soft Tissue -Endocarditis -UTI -Bone, Joint Infection -Implantable Device -Acute Abdominal Infection -Wound Infection -Meningitis -Blood Stream Catheter Infection -Unknown Review of Systems - Review Of Systems Constitutional: Reports: Weakness Eyes: Reports: No symptoms Ears, Nose, Mouth, Throat: Reports: No symptoms Respiratory: Reports: Short of air, Wheezing Cardiac: Reports: No symptoms GI: Reports: No symptoms : Reports: No symptoms Musculoskeletal: Reports: No symptoms Skin: Reports: No symptoms Neurological: Reports: No symptoms Endocrine: Reports: No symptoms Hematologic/Lymphatic: Reports: No symptoms All Other Systems: Other (swollen ankles) <JOHN PAUL JAVIER Last Filed: 03/04/19 18:03> - Review Of Systems Constitutional: Reports: No symptoms Eyes: Reports: No symptoms Ears, Nose, Mouth, Throat: Reports: No symptoms Respiratory: Reports: Short of air, Wheezing Cardiac: Reports: No symptoms GI: Reports: No symptoms : Reports: No symptoms Musculoskeletal: Reports: No symptoms Skin: Reports: No symptoms Neurological: Reports: No symptoms Endocrine: Reports: No symptoms Hematologic/Lymphatic: Reports: No symptoms All Other Systems: Reviewed and Negative <NGOZIJOHN PAUL Last Filed: 03/05/19 06:47> Past Medical History - Past Medical History Previously Healthy: Yes Endocrine: Reports: Dyslipidemia Cardiovascular: Reports: CAD, Hypertension Respiratory: Reports: None Hematological: Reports: None Gastrointestinal: Reports: None Genitourinary: Reports: None Neuro/Psych: Reports: None Musculoskeletal: Reports: Arthritis Cancer: Reports: None Last Menstrual Period: menopause - Surgical History General Surgical History: Reports: Back Surgery, Other (breast biopsy) - Family History Family History: Reports: None - Social History Smoking Status: Never smoker Hx Substance Use: No Alcohol Screening: None <JOHN PAUL JAVIER - Last Filed: 03/04/19 18:03> - Past Medical History Previously Healthy: No <JOHN PAUL MELVIN - Last Filed: 03/05/19 06:47> Physical Exam - Physical Exam Appearance: Ill-appearing, Thin Ill-appearing: Mild Pain Distress: None Eyes: ELOISE, EOMI, Conjunctiva clear ENT: Ears normal, Nose normal, Oropharynx normal Respiratory: Breath sounds diminished, Wheezes Cardiovascular: RRR, Pulses normal, No rub, No murmur GI/: Soft, Nontender, No masses, Bowel sounds normal, No Organomegaly Musculoskeletal: Normal strength, ROM intact, No edema, No calf tenderness Skin: Warm, Dry, Normal color Neurological: Sensation intact, Motor intact, Reflexes intact, Cranial nerves intact, Alert, Oriented Psychiatric: Affect appropriate, Mood appropriate <JOHN PAUL JAVIER - Last Filed: 03/04/19 18:03> Critical Care Note - Critical Care Note Total Time (mins): 0 <JOHN PAUL MELVIN - Last Filed: 03/05/19 06:47> Course - Course Hematology/Chemistry: 03/04/19 17:04 03/04/19 17:04 <JOHN PAUL JAVIER - Last Filed: 03/04/19 18:03> - Course Hematology/Chemistry: 03/05/19 04:45 03/05/19 04:45 <JOHN PAUL MELVIN - Last Filed: 03/05/19 06:47> - Course Orders, Labs, Meds: Lab Review 03/04/19 03/04/19 03/04/19 17:04 17:04 17:04 WBC 22.49 H RBC 2.78 L Hgb 10.6 L Hct 31.1 L MCV 111.9 H MCH 38.1 H MCHC 34.1 RDW Coeff of Timothy 14.5 Plt Count 286 Immature Gran % (Auto) 4.0 Neut % (Auto) 88.1 Lymph % (Auto) 1.8 L Scott % (Auto) 5.6 Eos % (Auto) 0.3 Baso % (Auto) 0.2 Immature Gran # (Auto) 0.9 Neut # (Auto) 19.8 H Lymph # (Auto) 0.4 L Scott # (Auto) 1.3 Eos # (Auto) 0.1 Baso # (Auto) 0.1 Anisocytosis 1+ Macrocytosis 2+ Spherocytes 1+ Sodium 135.8 Potassium 4.19 Chloride 101.1 Carbon Dioxide 27.6 Anion Gap 11.29 BUN 36.8 H Creatinine 0.73 Estimated GFR (MDRD) 76.00 BUN/Creatinine Ratio 50.41 Glucose 292.7 H Lactic Acid Calcium 8.97 Troponin I 0.032 Procalcitonin 03/04/19 03/04/19 18:14 18:14 WBC RBC Hgb Hct MCV MCH MCHC RDW Coeff of Timothy Plt Count Immature Gran % (Auto) Neut % (Auto) Lymph % (Auto) Scott % (Auto) Eos % (Auto) Baso % (Auto) Immature Gran # (Auto) Neut # (Auto) Lymph # (Auto) Scott # (Auto) Eos # (Auto) Baso # (Auto) Anisocytosis Macrocytosis Spherocytes Sodium Potassium Chloride Carbon Dioxide Anion Gap BUN Creatinine Estimated GFR (MDRD) BUN/Creatinine Ratio Glucose Lactic Acid 1.95 Calcium Troponin I Procalcitonin < 0.05 Orders Category Date Time Status ADMIT PATIENT INPATIENT .TO MEDSURG (MONITORED BED) ADMISSION 03/04/19 18: 47 Active EKG-(ED ONLY) Stat CARDIO 03/04/19 16:58 Completed BLOOD GLUCOSE MONITORING ACHS CARE 03/04/19 18:48 Active ELEVATE AFFECTED EXTREMITY .ONCE CARE 03/04/19 18:53 Active GIVE HS SNACK 2100 CARE 03/04/19 18:48 Active INTAKE & OUTPUT Q8HR CARE 03/04/19 18:48 Active TELEMETRY MONITORING TELE CARE 03/04/19 18:47 Active VITAL SIGNS Q4HR CARE 03/04/19 18:48 Completed VITAL SIGNS Q8HR CARE 03/04/19 18:48 Active WEIGH PATIENT Q2D@0600 CARE 03/04/19 18:49 Inactive ADA 1800 YESICA. DIET DIETARY 03/04/19 Breakfast Ordered HS SNACK DIETARY 03/04/19 Dinner Ordered IV [ED IV/MEDIPORT/POWERPORT] .ONCE EMERGENCY 03/04/19 16:58 Active BLOOD CULTURE (ED ONLY) Stat LAB 03/04/19 18:14 Received BMP [BASIC METABOLIC PANEL] Stat LAB 03/04/19 17:04 Completed CBC W/ AUTO DIFF DAILY@0600 LAB 03/05/19 04:45 Completed CBC W/ AUTO DIFF DAILY@0600 LAB 03/06/19 06:00 Ordered CBC W/ AUTO DIFF Stat LAB 03/04/19 17:04 Completed COMPREHENSIVE METABOLIC PANEL DAILY@0600 LAB 03/05/19 04:45 Completed COMPREHENSIVE METABOLIC PANEL DAILY@0600 LAB 03/06/19 06:00 Ordered LACTIC ACID Stat LAB 03/04/19 18:14 Completed PROCALCITONIN Stat LAB 03/04/19 18:14 Completed RBC MORPHOLOGY Stat LAB 03/04/19 17:04 Completed TROPONIN I Stat LAB 03/04/19 17:04 Completed 0.9 % Sodium Chloride [Saline Flush] MEDS 03/04/19 16:58 Active 1 syr IVF PRN PRN Acetaminophen [Tylenol] MEDS 03/04/19 21:00 Active 1,000 mg PO 0300,2100 Albuterol Sulfate [Proair Hfa] MEDS 03/04/19 18:50 Active 2 puff IH Q4H PRN Ceftriaxone Sodium [Rocephin] MEDS 03/04/19 18:29 Discontinued 1,000 mg .ROUTE .STK-MED ONE Ceftriaxone Sodium [Rocephin] 1,000 mg MEDS 03/04/19 18:32 Discontinued 0.9 % Sodium Chloride [Sodium Chloride] 50 ml IV ONCE Clonidine HCl [Catapres] MEDS 03/04/19 18:50 Active 0.1 mg PO DAILY PRN Cyclosporine [Restasis] MEDS 03/04/19 21:00 Discontinued 2 each OP BID Diltiazem HCl [Cardizem LA] MEDS 03/04/19 21:00 Ordered 120 mg PO BID Diphenhydramine HCl [Benadryl] MEDS 03/04/19 21:00 Active 25 mg PO 0300,2100 Enoxaparin Sodium [Lovenox] MEDS 03/05/19 09:00 Active 30 mg SUBCUT DAILY Erythromycin Opth Oint [Erythromycin] MEDS 03/04/19 19:00 Ordered 1 applic OP DIRECTED Folic Acid MEDS 03/05/19 09:00 Active 3 mg PO DAILY Furosemide [Lasix Tab] MEDS 03/05/19 06:30 Hold 20 mg PO QDAC Furosemide [Lasix] MEDS 03/05/19 09:00 Discontinued 20 mg IVP DAILY Furosemide [Lasix] MEDS 03/04/19 17:17 Discontinued 20 mg IVP ONCE STA Insulin Regular, Human [Humulin R] MEDS 03/04/19 18:56 Active See Protocol SUBCUT PRN PRN Losartan Potassium [Cozaar] MEDS 03/05/19 09:00 Active 100 mg PO DAILY Lutein [Lutein] MEDS 03/05/19 09:00 Active 20 mg PO DAILY Methotrexate Sodium [Rheumatrex] MEDS 03/04/19 19:00 Active 15 mg PO CASTAÑEDA Omeprazole [Prilosec] MEDS 03/05/19 06:30 Active 20 mg PO QDAC Polyethylene Glycol 3350 [Miralax] MEDS 03/04/19 18:50 Active 17 gm PO DAILY PRN Prednisone MEDS 03/04/19 19:00 Discontinued 10 mg PO DIRECTED Sotalol HCl [Betapace] MEDS 03/04/19 21:00 Active 80 mg PO TID RESUSCITATION STATUS Routine OTHERS 03/04/19 18:48 Ordered CXR [CHEST, 1V AP ONLY] Stat RADS 03/04/19 16:59 Completed Medications Generic Name Dose Route Start Last Admin Trade Name Marcus PRN Reason Stop Dose Admin Acetaminophen 1,000 mg 03/04/19 21:00 03/05/19 05:32 Tylenol PO Not Given 0300,2100 SU Albuterol Sulfate 2 puff 03/04/19 18:50 Proair Hfa IH Q4H PRN Wheezing Clonidine 0.1 mg 03/04/19 18:50 Catapres PO DAILY PRN Hypertensive Emergency Diphenhydramine HCl 25 mg 03/04/19 21:00 03/05/19 05:31 Benadryl PO Not Given 0300,2100 SU Enoxaparin Sodium 30 mg 03/05/19 09:00 Lovenox SUBCUT DAILY SU Erythromycin 1 applic 03/04/19 19:00 Erythromycin OP 03/07/19 18:59 DIRECTED SU Folic Acid 3 mg 03/05/19 09:00 Folic Acid PO DAILY SU Furosemide 20 mg 03/05/19 06:00 03/05/19 05:51 Lasix IVP 20 mg DAILY SU Administration Insulin Human Regular 0 unit 03/04/19 18:56 03/04/19 23:09 Humulin R SUBCUT 3 unit PRN PRN Administration Hyperglycemia Protocol Losartan Potassium 100 mg 03/05/19 09:00 Cozaar PO DAILY SU Methotrexate 15 mg 03/04/19 19:00 03/04/19 20:33 Rheumatrex PO Not Given CASTAÑEDA [facility] Non-Formulary Medication 120 mg 03/04/19 21:00 03/04/19 21:11 Diltiazem Hcl [Cardizem La] PO Not Given BID [facility] Non-Formulary Medication 20 mg 03/05/19 06:30 Furosemide [Lasix Tab] PO QDAC [facility] Non-Formulary Medication 20 mg 03/05/19 09:00 Lutein [Lutein] PO DAILY [facility] Non-Formulary Medication 1 drop 03/05/19 09:00 Serum Eye Drops EACHEYE Q2HR [facility] Non-Formulary Medication 1 cap 03/05/19 09:00 Doxycycline Hyclate 50 Mg PO 03/11/19 09:01 DAILY [facility] Non-Formulary Medication 2 each 03/05/19 09:00 Cyclosporine [Restasis] OP BID [facility] Omeprazole 20 mg 03/05/19 06:30 03/05/19 05:52 Prilosec PO 20 mg QDAC [facility] Administration Polyethylene Glycol 17 gm 03/04/19 18:50 Miralax PO DAILY PRN Constipation Potassium Chloride 10 meq 03/05/19 08:00 Micro-K Cap PO DAILYWM [facility] Prednisone 5 mg 03/06/19 08:00 Prednisone PO BIDWM [facility] Prednisone 10 mg 03/05/19 08:00 Prednisone PO 03/05/19 18:29 BIDWM [facility] Simvastatin 20 mg 03/05/19 09:00 Zocor PO DAILY [facility] Sodium Chloride 1 syr 03/04/19 16:58 03/05/19 05:53 Saline Flush IVF 1 syr PRN PRN Administration To flush IV Sotalol HCl 80 mg 03/04/19 21:00 03/04/19 21:09 Betapace PO 80 mg TID SU Administration Tramadol HCl 50 mg 03/04/19 20:52 03/04/19 21:08 Ultram PO 50 mg BID PRN Administration MODERATE PAIN Discontinued Medications Generic Name Dose Route Start Last Admin Trade Name Freq PRN Reason Stop Dose Admin Furosemide 20 mg 03/04/19 17:17 03/04/19 17:37 Lasix IVP 03/04/19 17:18 20 mg ONCE STA Administration Furosemide 20 mg 03/05/19 09:00 Lasix IVP DAILY [facility] Ceftriaxone Sodium 1,000 mg/ 50 mls @ 75 mls/hr 03/04/19 18:32 03/04/19 18:42 Sodium Chloride IV 03/04/19 19:11 75 mls/hr ONCE STA Administration Non-Formulary Medication 2 each 03/04/19 21:00 03/04/19 21:40 Cyclosporine [Restasis] OP Not Given BID [facility] Prednisone 10 mg 03/04/19 19:00 Prednisone PO DIRECTED [facility] Vital Signs: Temp Pulse Resp BP Pulse Ox 03/04/19 16:38 97.6 F 62 20 167/97 H 97 COLT Risk Score: Risk Score Odds of by 30D 0 0.1 (0.1-0.2) 1 0.3 (0.2-0.3) 2 0.4 (0.3-0.5) 3 0.7 (0.6-0.9) 4 1.2 (1.0-1.5) 5 2.2 (1.9-2.6) 6 3.0 (2.5-3.6) 7 4.8 (3.8-6.1) Departure <JOHN PAUL JAVIER - Last Filed: 03/04/19 18:03> - Departure Time of Disposition: 06:46 Pt referred to PMD for follow-up: Yes IPMP verified?: No Disposition Discussed With: Patient, Family <JOHN PAUL MELVIN - Last Filed: 03/05/19 06:47> - Departure Disposition: PLACED OBSERVATION Discharge Problem: Leg swelling Condition: Stable Allergies/Adverse Reactions: Allergies certolizumab pegol [From Cimzia] Adverse Reaction (Verified 03/04/19 16:50) Hives chlorpheniramine [From Dristan] Adverse Reaction (Verified 03/04/19 16:50) codeine Adverse Reaction (Verified 03/04/19 16:50) duloxetine [From Cymbalta] Adverse Reaction (Verified 03/04/19 16:50) DIARRHEA/DRY HEAVES hydrocodone Adverse Reaction (Verified 03/04/19 16:50) ibandronate sodium [From Boniva] Adverse Reaction (Verified 03/04/19 16:50) imipramine HCl [From Tofranil] Adverse Reaction (Verified 03/04/19 16:50) oseltamivir phosphate [From Tamiflu] Adverse Reaction (Verified 03/04/19 16:50) oxymetazoline HCl [From Drlanny] Adverse Reaction (Verified 03/04/19 16:50) pheniramine maleate [From Kelli] Adverse Reaction (Verified 03/04/19 16:50) phenylephrine HCl [From Kelli] Adverse Reaction (Verified 03/04/19 16:50) pseudoephedrine HCl [From Kelli] Adverse Reaction (Verified 03/04/19 16:50) ramipril [From Altace] Adverse Reaction (Verified 03/04/19 16:50) zolpidem tartrate [From Ambien] Adverse Reaction (Verified 03/04/19 16:50) TAPE Adverse Reaction (Uncoded 02/03/19 03:38) Home Medications: Ambulatory Orders Clonidine HCl [Catapres] 0.1 mg PO DAILY PRN 06/18/13 Cyclosporine [Restasis] 2 each OP BID 06/18/13 Omeprazole [Prilosec] 20 mg PO QDAC 06/18/13 Diltiazem HCl [Cardizem LA] 120 mg PO BID 06/21/14 Polyethylene Glycol 3350 [Miralax] 17 gm PO DAILY PRN 06/21/14 Simvastatin [Zocor] 20 mg PO DAILY 06/21/14 Albuterol Sulfate [Proair Hfa] 2 puff IH Q4H PRN 08/03/17 Lutein 20 mg PO DAILY 08/03/17 Sotalol HCl [Sotalol] 80 mg PO TID 08/03/17 Methotrexate Sodium [Methotrexate] 6 tab PO CASTA[place]EDA 08/01/18 Prednisone 10 mg PO DIRECTED 08/01/18 Acetaminophen [Tylenol Extra Strength] 1,000 mg PO 0300,209908/02/18 Diphenhydramine HCl 25 mg PO 0300,209908/02/18 Furosemide [Lasix Tab] 20 mg PO QDAC 01/30/19 Potassium Chloride [K-Dur] 10 meq PO DAILY 01/30/19 Folic Acid 3 tab PO DAILY 02/03/19 Losartan Potassium [Cozaar] 100 mg PO DAILY #30 tab 02/06/19 Cholecalciferol (Vitamin D3) [Vitamin D3] 1 cap PO DAILY 03/04/19 Doxycycline Hyclate 1 cap PO DAILY 03/04/19 Erythromycin Opth Oint [Erythromycin] 1 applic EACHEYE BEDTIME 03/04/19 Tramadol HCl 0.5 tab PO BID PRN 03/04/19
[2019-03-04] MEDS ORDERED: LASIX IVP STA (17:17)
[2019-03-04] MEDS ORDERED: ROCEPHIN IV STA ×2 (18:04→18:32)
[2019-03-04] MEDS ORDERED: SODIUM CHLORIDE IV STA ×2 (18:04→18:32)
[2019-03-04] MEDS ORDERED: ROCEPHIN 500 MG VIAL ONE (18:29)
[2019-03-04] MEDS ORDERED: MIRALAX PO PRN (18:50)
[2019-03-04] MEDS ORDERED: PROAIR HFA IH PRN (18:50)
[2019-03-04] MEDS ORDERED: CATAPRES PO PRN (18:50)
[2019-03-04] MEDS ORDERED: RHEUMATREX PO SCH (19:00)
[2019-03-04] MEDS ORDERED: ERYTHROMYCIN OP SCH (19:00)
[2019-03-04] MEDS ORDERED: PREDNISONE PO SCH (19:00)
[2019-03-04 20:50] VITALS: BMI 23.0
[2019-03-04] MEDS ORDERED: DILTIAZEM HCL 120 MG PO SCH (21:00)
[2019-03-04] MEDS ORDERED: CYCLOSPORINE OP SCH (21:00)
[2019-03-04] MEDS ORDERED: CARDIZEM CD ONE (21:06)
[2019-03-04] MEDS: ULTRAM PO PRN (21:08)
[2019-03-04] MEDS: BENADRYL PO SCH (21:08)
[2019-03-04] MEDS: TYLENOL PO SCH (21:08)
[2019-03-04] MEDS: BETAPACE PO SCH (21:09)
--- NOTE | 2019-03-04 21:28 | DI ---
EXAM: Single View Chest HISTORY: Short of breath COMPARISON: 01/30/2019. Findings: Left basilar right lower lung mild opacities are seen. Cardiac size is within normal and mediastinal silhouette appears stable. Left costophrenic angle blunting is present. Bony structure evaluation is limited on single view chest. Left rib deformities suggest previous rib fractures. IMPRESSION: Left basilar right and lower lung airspace opacities suggest pneumonia versus component atelectasis Left costophrenic angle blunting suggest pleural thickening or small left pleural effusion.
[2019-03-04] MEDS: HUMULIN R SUBCUT PRN (23:09)
[2019-03-05] MEDS ORDERED: PREDNISONE PO SCH (00:33)
[2019-03-05] MEDS: BENADRYL PO SCH ×2 (05:31→20:54)
[2019-03-05] MEDS: TYLENOL PO SCH ×2 (05:32→20:53)
[2019-03-05] MEDS: LASIX IVP SCH ×2 (05:51→08:30)
[2019-03-05] MEDS: PRILOSEC PO SCH (05:52)
[2019-03-05] MEDS ORDERED: NON-FORMULARY MEDICATION (Furosemide [Lasix Tab] 20 MG) PO SCH (06:30)
[2019-03-05] MEDS ORDERED: KEFLEX ONE (08:15)
[2019-03-05] MEDS: KEFLEX PO SCH ×2 (08:20→20:52)
[2019-03-05] MEDS: ZOCOR PO SCH (08:28)
[2019-03-05] MEDS: FOLIC ACID PO SCH (08:29)
[2019-03-05] MEDS: BETAPACE PO SCH ×3 (08:29→20:53)
[2019-03-05] MEDS: PREDNISONE PO SCH ×2 (08:29→17:01)
[2019-03-05] MEDS: MICRO-K CAP PO SCH (08:29)
[2019-03-05] MEDS: COZAAR PO SCH (08:29)
[2019-03-05] MEDS: LOVENOX SUBCUT SCH (08:31)
[2019-03-05] MEDS: SERUM EYE EACHEYE SCH ×8 (08:47→23:13)
[2019-03-05] MEDS: DOXYCYCLINE HYCLATE 50 MG PO SCH (08:48)
[2019-03-05] MEDS: CARDIZEM CD PO SCH ×2 (08:58→20:53)
[2019-03-05] MEDS ORDERED: NON-FORMULARY MEDICATION (Simvastatin [Zocor] 20 MG) PO SCH (09:00)
[2019-03-05] MEDS ORDERED: LASIX IVP SCH (09:00)
[2019-03-05] MEDS ORDERED: K-DUR PO SCH (09:00)
[2019-03-05] MEDS: CYCLOSPORINE OP SCH ×2 (09:24→20:54)
--- NOTE | 2019-03-05 09:53 | PCM.PROG ---
Attending Provider: ATTENDING PROVIDER: Dr. NILAY ROSENTHAL DATE OF SERVICE: 03/05/19 SUBJECTIVE: This 83 year old WHITE/ F was hospitalized 03/04/19 with bilateral leg edema, +4 edema, from Prednisone therapy. She has been started on high dose of Prednisone by Dr. Max. We do not have the reports. We will continue steroids and Doxycycline. She doesn't have any symptoms of CHF. She is is lying flat, no PND, no chest pain. 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 Dr. Max has talked to Dr. Baer who is a rheumatoid specialist. REVIEW OF SYSTEMS: CONSTITUTIONAL: No night sweats. No fatigue, malaise, lethargy. No fever or chills. HEENT: Eyes: No visual changes. No eye pain. No eye discharge. ENT: No runny nose. No epistaxis. No sinus pain. No odynophagia. No congestion. RESPIRATORY: No cough, no congestion. No hemoptysis. No shortness of breath. CARDIOVASCULAR: No angina symptoms. No CHF symptoms. No atypical chest pain for CAD. No palpitations. No orthopnea.. GASTROINTESTINAL: No abdominal pain. No nausea or vomiting. No diarrhea or constipation. No hematemesis. No hematochezia. GENITOURINARY: No urgency. No frequency. No dysuria. No hematuria. No obstructive symptoms. No discharge. No pain. No significant abnormal bleeding. MUSCULOSKELETAL: No musculoskeletal pain; no joint swelling. NEUROLOGICAL: Awake, alert, oriented to time, place and person. No headache. No neck pain. No syncope. No seizures. No dizziness. PSYCHIATRIC: Not anxious. No depression. No suicidal thoughts. No homicidal thoughts. SKIN: No rash. No lesions. No wounds. ENDOCRINE: No unexplained weight loss. No weight gain. HEMATOLOGIC/LYMPHATIC: No anemia. No purpura. No petechiae. No prolonged or excessive bleeding. No palpable lymph nodes. PHYSICAL EXAMINATION: GENERAL: The patient is awake, alert and oriented, lying/sitting in bed in no distress. VITAL SIGNS: Temperature 98.4 F, Pulse 64, Respiratory Rate 20, BP 164/72, Pulse Ox 100% HEENT: Head normocephalic, atraumatic. Eyes: Extraocular muscles are intact. Pupils are equal, round and reactive to light and accommodation. Ears: No lesions. Nose appeared normal. Throat: No exudate or erythema. NECK: Supple. No JVD, no carotid bruit. No lymphadenopathy or thyromegaly. LUNGS: Clear to auscultation. Percussion note normal. Chest symmetrical. HEART: S1, S2, no S3. No murmurs. No cyanosis or clubbing. No ascites. Pulses: Dorsalis pedis and posterior tibial pulses +1 to +2 both sides. ABDOMEN: Soft. Non-tender. Bowel sounds active. No CVA tenderness. No mass felt. EXTREMITIES: Pedal edema. Full range of motion of all extremities, equal. NEUROLOGIC: No focal deficit. Cranial nerves II through XII are grossly intact. No headache, no double vision or headache. SKIN: Warm and dry. Intact. Turgor-normal. LYMPHATIC: No palpable lymph nodes/no lymphedema. MUSCULOSKELETAL: Normal joints with no swelling. Muscle tone is normal. LAB REVIEW: 03/05/19 04:45 03/05/19 04:45 03/05/19 04:45: Sodium 136.3, Potassium 3.55, Chloride 99.5, Carbon Dioxide 32.8 H, Anion Gap 7.55, BUN 34.8 H, Creatinine 0.59 L, Estimated GFR (MDRD) 97.00, BUN/Creatinine Ratio 58.98, Glucose 83.3 D, Calcium 9.02, Total Bilirubin 0.40, AST 19.9, ALT 26.7, Alkaline Phosphatase 107.1, Total Protein 4.90 L, Albumin 2.80 L, Globulin 2.10, Albumin/Globulin Ratio 1.33 03/05/19 04:45: WBC 18.51 H, RBC 2.73 L, Hgb 10.3 L, Hct 30.0 L, MCV 109.9 H, MCH 37.7 H, MCHC 34.3, RDW Coeff of Timothy 14.4, Plt Count 250, Immature Gran % ( Auto) 3.8, Neut % (Auto) 84.9, Lymph % (Auto) 4.1 L, Robertson % (Auto) 4.7, Eos % ( Auto) 2.1, Baso % (Auto) 0.4, Immature Gran # (Auto) 0.7, Neut # (Auto) 15.7 H, Lymph # (Auto) 0.8, [place] # (Auto) 0.9, Eos # (Auto) 0.4, Baso # (Auto) 0.1, Anisocytosis 1+, Macrocytosis 1+ 03/04/19 18:14: Lactic Acid 1.95 03/04/19 18:14: Procalcitonin < 0.05 03/04/19 17:04: Troponin I 0.032 03/04/19 17:04: Sodium 135.8, Potassium 4.19, Chloride 101.1, Carbon Dioxide 27.6, Anion Gap 11.29, BUN 36.8 H, Creatinine 0.73, Estimated GFR (MDRD) 76.00, BUN/Creatinine Ratio 50.41, Glucose 292.7 H, Calcium 8.97 03/04/19 17:04: WBC 22.49 H, RBC 2.78 L, Hgb 10.6 L, Hct 31.1 L, MCV 111.9 H, MCH 38.1 H, MCHC 34.1, RDW Coeff of Timothy 14.5, Plt Count 286, Immature Gran % ( Auto) 4.0, Neut % (Auto) 88.1, Lymph % (Auto) 1.8 L, [place] % (Auto) 5.6, Eos % ( Auto) 0.3, Baso % (Auto) 0.2, Immature Gran # (Auto) 0.9, Neut # (Auto) 19.8 H, Lymph # (Auto) 0.4 L, [place] # (Auto) 1.3, Eos # (Auto) 0.1, Baso # (Auto) 0.1, Anisocytosis 1+, Macrocytosis 2+, Spherocytes 1+ ASSESSMENT: Please see below. 1. Pedal edema +2 to +4 which was described on admission by the ER physician, on IV Lasix will give 20 mg daily. PLAN: 1. Keflex 500 mg b.i.d. 2. Continue Doxycycline. Plan and coordination of the patient's care discussed in the presence of Surgical Instrument Technician and nurse. CONDITION: Stable. SCRIBED BY: STEFANI KRAUS Printing Technician scribed while in presence of service performed by Dr. NILAY ROSENTHAL on 03/05/19 ([id number])
[2019-03-05] MEDS: NON-FORMULARY MEDICATION (Lutein [Lutein] 20 MG) PO SCH (09:58)
[2019-03-05] MEDS: HUMULIN R SUBCUT PRN ×3 (11:52→20:59)
[2019-03-05] MEDS ORDERED: ERYTHROMYCIN OP SCH (21:00)
[2019-03-05] MEDS: ULTRAM PO PRN (21:47)
[2019-03-06] MEDS: SERUM EYE EACHEYE SCH ×8 (02:29→14:42)
[2019-03-06] MEDS: BENADRYL PO SCH (04:48)
[2019-03-06] MEDS: TYLENOL PO SCH (04:49)
[2019-03-06] MEDS: PRILOSEC PO SCH (05:39)
[2019-03-06] MEDS ORDERED: PREDNISONE PO SCH (08:00)
[2019-03-06] MEDS ORDERED: K-DUR PO STA (08:21)
[2019-03-06] MEDS ORDERED: K-DUR ONE (08:22)
[2019-03-06] MEDS: DOXYCYCLINE HYCLATE 50 MG PO SCH (08:26)
[2019-03-06] MEDS: LASIX IVP SCH (08:27)
[2019-03-06] MEDS: COZAAR PO SCH (08:28)
[2019-03-06] MEDS: KEFLEX PO SCH (08:28)
[2019-03-06] MEDS: ZOCOR PO SCH (08:29)
[2019-03-06] MEDS: FOLIC ACID PO SCH (08:29)
[2019-03-06] MEDS: BETAPACE PO SCH ×2 (08:29→14:37)
[2019-03-06] MEDS: CARDIZEM CD PO SCH (08:29)
[2019-03-06] MEDS: MICRO-K CAP PO SCH (08:31)
[2019-03-06] MEDS: LOVENOX SUBCUT SCH (08:32)
[2019-03-06] MEDS: NON-FORMULARY MEDICATION (Lutein [Lutein] 20 MG) PO SCH (08:34)
[2019-03-06] MEDS: CYCLOSPORINE OP SCH (08:34)
--- NOTE | 2019-03-06 09:47 | PCM.PROG ---
Attending Provider: ATTENDING PROVIDER: Dr. NILAY MARTINEZ This patient is seen with Janna Newby, Nurse Practitioner. DATE OF SERVICE: 03/06/19 SUBJECTIVE: This 83 year old WHITE/ F was hospitalized 03/04/19. Lying in bed resting comfortably. Leg edema has improved. Blood pressure has been controlled. Will plan to discharge home today. REVIEW OF SYSTEMS: CONSTITUTIONAL: Weakness. No night sweats. No fatigue, malaise, lethargy. No fever or chills. HEENT: Eyes: No visual changes. No eye pain. No eye discharge. ENT: No runny nose. No epistaxis. No sinus pain. No odynophagia. No congestion. RESPIRATORY: No cough, no congestion. No hemoptysis. No shortness of breath. CARDIOVASCULAR: No angina symptoms. No CHF symptoms. No atypical chest pain for CAD. No palpitations. No orthopnea.. GASTROINTESTINAL: No abdominal pain. No nausea or vomiting. No diarrhea or constipation. No hematemesis. No hematochezia. GENITOURINARY: No urgency. No frequency. No dysuria. No hematuria. No obstructive symptoms. No discharge. No pain. No significant abnormal bleeding. MUSCULOSKELETAL: Chronic back pain. NEUROLOGICAL: Awake, alert, oriented to time, place and person. No headache. No neck pain. No syncope. No seizures. No dizziness. PSYCHIATRIC: Not anxious. No depression. No suicidal thoughts. No homicidal thoughts. SKIN: No rash. No lesions. No wounds. ENDOCRINE: No unexplained weight loss. No weight gain. HEMATOLOGIC/LYMPHATIC: No anemia. No purpura. No petechiae. No prolonged or excessive bleeding. No palpable lymph nodes. PHYSICAL EXAMINATION: GENERAL: The patient is awake, alert and oriented, lying/sitting in bed in no distress. VITAL SIGNS: Temperature 98.1 F, Pulse 72, Respiratory Rate 16, BP 139/79, Pulse Ox 100% HEENT: Head normocephalic, atraumatic. Eyes: Extraocular muscles are intact. Pupils are equal, round and reactive to light and accommodation. Ears: No lesions. Nose appeared normal. Throat: No exudate or erythema. NECK: Supple. No JVD, no carotid bruit. No lymphadenopathy or thyromegaly. LUNGS: Diminished breath sounds. Clear to auscultation. Percussion note normal. Chest symmetrical. HEART: S1, S2, no S3. No murmurs. No cyanosis or clubbing. No ascites. Pulses: Dorsalis pedis and posterior tibial pulses +1 to +2 both sides. ABDOMEN: Soft. Non-tender. Bowel sounds active. No CVA tenderness. No mass felt. EXTREMITIES: Trace leg edema. Full range of motion of all extremities, equal. NEUROLOGIC: No focal deficit. Cranial nerves II through XII are grossly intact. No headache, no double vision or headache. SKIN: Not dry. Intact. Turgor-normal. LYMPHATIC: No palpable lymph nodes/no lymphedema. MUSCULOSKELETAL: Normal joints with no swelling. Muscle tone is normal. LAB REVIEW: 03/06/19 04:55 03/06/19 04:55 03/06/19 04:55: Sodium 133.7 L, Potassium 3.33 L, Chloride 93.7 L, Carbon Dioxide 35.1 H, Anion Gap 8.23, BUN 35.1 H, Creatinine 0.55 L, Estimated GFR ( MDRD) 106.00, BUN/Creatinine Ratio 63.81, Glucose 120.5 H, Calcium 8.67, Total Bilirubin 0.49, AST 19.1, ALT 28.2, Alkaline Phosphatase 97.3, Total Protein 4.82 L, Albumin 2.76 L, Globulin 2.06, Albumin/Globulin Ratio 1.33 03/06/19 04:55: WBC 10.14 D, RBC 2.61 L, Hgb 9.7 L, Hct 28.1 L, MCV 107.7 H, MCH 37.2 H, MCHC 34.5, RDW Coeff of Timothy 14.0, Plt Count 241, Immature Gran % ( Auto) 2.1, Neut % (Auto) 92.4, Lymph % (Auto) 2.0 L, Glenn % (Auto) 3.3, Eos % ( Auto) 0.0, Baso % (Auto) 0.2, Immature Gran # (Auto) 0.2, Neut # (Auto) 9.4 H, Lymph # (Auto) 0.2 L, Glenn # (Auto) 0.3 L, Eos # (Auto) 0.0, Baso # (Auto) 0.0, Anisocytosis 1+, Macrocytosis 1+ 03/05/19 09:40: Urine Color Yellow, Urine Clarity Slightly, Urine pH 7.0, Ur Specific Cle[place] 1.015, Urine Protein Negative, Urine Glucose (UA) Negative, Urine Ketones Negative, Urine Blood Trace-intact, Urine Nitrite Negative, Urine Bilirubin Negative, Urine Urobilinogen 0.2, Ur Leukocyte Esterase 3+, Urine Microscopic RBC 0-2, Urine Microscopic WBC 50-100, Ur Squamous Epith Cells 0-2, Urine Bacteria 1+ ASSESSMENT: Please see below. 1. Leg edema - as a result of high dose steroids. 2. Hypertension - controlled. 3. Hypokalemia. PLAN: 1. Keflex 500 mg b.i.d. times five days. 2. D/C home. 3. Continue Lasix 20 mg p.o. daily at home. 4. Potassium 40 mg before discharge continue 10 mEq at home. 5. Continue tapeiring of Prednisone and Doxycycline per Dr. Max. Plan and coordination of the patient's care discussed in the presence of Jet Aircraft Servicer and nurse. CONDITION: Stable SCRIBED BY: STEFANI KRAUS Foreign Language Stenographer scribed while in presence of service performed by Dr. Martinez/Janna Newby APRN on 03/06/19 ([id number])
[2019-03-06] MEDS: HUMULIN R SUBCUT PRN (11:25)
--- NOTE | 2019-03-06 13:02 | CM.DICTOOL ---
ADMISSION: 03/04/19 19:00 DISCHARGE: MARCH 06, 2019 DATE OF SERVICE: 03/06/19 FINAL DIAGNOSIS LEG EDEMA HYPOKALEMIA HYPERTENSION CAD COPD, OXYGEN RHEUMATOID ARTHRITIS (DR. MENDOZA) GERD DYSLIPIDEMIA DJD RECENT EYE INFECTION (DR. CELESTIN) CATARACT EXTRACTION BACK SURGERY X 3 BREAST BIOPSY PFT (2017) SEVERE COPD ECHOCARDIOGRAM (2017) BORDERLINE LVH NORMAL VALVES NORMAL LV CONTRACTILITY LAST VITALS Temp Pulse Resp BP Pulse Ox 98.1 F 72 16 139/79 100 03/06/19 05:09 03/06/19 05:09 03/06/19 05:09 03/06/19 05:09 03/06/19 05:09 TAKE THESE MEDICATIONS AT HOME Acetaminophen (Tylenol) 1,000 mg PO 0300,2100 [facility] Last Admin: 03/06/19 04:49 Dose: Not Given Albuterol Sulfate (Proair Hfa) 2 puff IH Q4H PRN PRN Reason: Wheezing Cephalexin (Keflex) 500 mg PO Q12HR [facility] Last Admin: 03/06/19 08:28 Dose: 500 mg Clonidine (Catapres) 0.1 mg PO DAILY PRN PRN Reason: Hypertensive Emergency Diltiazem HCl (Cardizem Cd) 120 mg PO BID [facility] Last Admin: 03/06/19 08:29 Dose: 120 mg Diphenhydramine HCl (Benadryl) 25 mg PO 0300,2100 [facility] Last Admin: 03/06/19 04:48 Dose: Not Given Erythromycin (Erythromycin) 1 applic OP BEDTIME [facility] Stop: 03/08/19 20:59 Last Admin: 03/05/19 21:06 Dose: 1 applic Folic Acid (Folic Acid) 3 mg PO DAILY [facility] Last Admin: 03/06/19 08:29 Dose: 3 mg Furosemide (Lasix) 20 mg PO DAILY [facility] Last Admin: 03/06/19 08:27 Dose: 20 mg Losartan Potassium (Cozaar) 100 mg PO DAILY [facility] Last Admin: 03/06/19 08:28 Dose: 100 mg Methotrexate (Rheumatrex) 15 mg PO CASTAÑEDA [facility] Last Admin: 03/04/19 20:33 Dose: Not Given Non-Formulary Medication (Furosemide [Lasix Tab]) 20 mg PO QDAC [facility] Last Admin: 03/06/19 05:42 Dose: Not Given Non-Formulary Medication (Lutein [Lutein]) 20 mg PO DAILY [facility] Last Admin: 03/06/19 08:34 Dose: 20 mg Non-Formulary Medication (Serum Eye Drops) 1 drop EACHEYE Q2HR [facility] Last Admin: 03/06/19 11:25 Dose: 1 drop Non-Formulary Medication (Doxycycline Hyclate 50 Mg) 1 cap PO DAILY [facility] ( PRESCRIBED BY DR. CELESTIN) Last Admin: 03/06/19 08:26 Dose: 1 cap Non-Formulary Medication (Cyclosporine [Restasis]) 2 each OP BID [facility] Last Admin: 03/06/19 08:34 Dose: 2 each Omeprazole (Prilosec) 20 mg PO QDAC [facility] Last Admin: 03/06/19 05:39 Dose: 20 mg Polyethylene Glycol (Miralax) 17 gm PO DAILY PRN PRN Reason: Constipation Potassium Chloride (Micro-K Cap) 10 meq PO DAILYWM [facility] Last Admin: 03/06/19 08:31 Dose: 10 meq Prednisone (Prednisone) 5 mg PO BIDWM [facility] (PRESCRIBED BY DR. CELESTIN) Last Admin: 03/06/19 08:29 Dose: 5 mg Simvastatin (Zocor) 20 mg PO DAILY [facility] Last Admin: 03/06/19 08:29 Dose: 20 mg Sotalol HCl (Betapace) 80 mg PO TID [facility] Last Admin: 03/06/19 08:29 Dose: 80 mg Tramadol HCl (Ultram) 50 mg PO BID PRN PRN Reason: MODERATE PAIN Last Admin: 03/05/19 21:47 Dose: 50 mg ALLERGIES certolizumab pegol [From Cimzia] Adverse Reaction (Verified 03/04/19 16:50) Hives chlorpheniramine [From Dristan] Adverse Reaction (Verified 03/04/19 16:50) codeine Adverse Reaction (Verified 03/04/19 16:50) duloxetine [From Cymbalta] Adverse Reaction (Verified 03/04/19 16:50) DIARRHEA/DRY HEAVES hydrocodone Adverse Reaction (Verified 03/04/19 16:50) ibandronate sodium [From Boniva] Adverse Reaction (Verified 03/04/19 16:50) imipramine HCl [From Tofranil] Adverse Reaction (Verified 03/04/19 16:50) oseltamivir phosphate [From Tamiflu] Adverse Reaction (Verified 03/04/19 16:50) oxymetazoline HCl [From istan] Adverse Reaction (Verified 03/04/19 16:50) pheniramine maleate [From Kelli] Adverse Reaction (Verified 03/04/19 16:50) phenylephrine HCl [From Dristan] Adverse Reaction (Verified 03/04/19 16:50) pseudoephedrine HCl [From Dristan] Adverse Reaction (Verified 03/04/19 16:50) ramipril [From Altace] Adverse Reaction (Verified 03/04/19 16:50) zolpidem tartrate [From Ambien] Adverse Reaction (Verified 03/04/19 16:50) TAPE Adverse Reaction (Uncoded 02/03/19 03:38) DISCONTINUED MEDICATIONS NONE NEW PRESCRIPTIONS: KEFLEX 500 MG BID FOR 5 DAYS OXYGEN SMOKING: NOT APPLICABLE DISEASE SPECIFIC EDUCATION: USE OF ORAL STEROIDS SIDE EFFECTS OF STEROIDS; SWELLING, GI UPSET ACTIVITY APPOINTMENT LAB REVIEW: 03/06/19 04:55 03/06/19 04:55 03/06/19 04:55: Sodium 133.7 L, Potassium 3.33 L, Chloride 93.7 L, Carbon Dioxide 35.1 H, Anion Gap 8.23, BUN 35.1 H, Creatinine 0.55 L, Estimated GFR ( MDRD) 106.00, BUN/Creatinine Ratio 63.81, Glucose 120.5 H, Calcium 8.67, Total Bilirubin 0.49, AST 19.1, ALT 28.2, Alkaline Phosphatase 97.3, Total Protein 4.82 L, Albumin 2.76 L, Globulin 2.06, Albumin/Globulin Ratio 1.33 03/06/19 04:55: WBC 10.14 D, RBC 2.61 L, Hgb 9.7 L, Hct 28.1 L, MCV 107.7 H, MCH 37.2 H, MCHC 34.5, RDW Coeff of Timothy 14.0, Plt Count 241, Immature Gran % ( Auto) 2.1, Neut % (Auto) 92.4, Lymph % (Auto) 2.0 L, [place] % (Auto) 3.3, Eos % ( Auto) 0.0, Baso % (Auto) 0.2, Immature Gran # (Auto) 0.2, Neut # (Auto) 9.4 H, Lymph # (Auto) 0.2 L, [place] # (Auto) 0.3 L, Eos # (Auto) 0.0, Baso # (Auto) 0.0, Anisocytosis 1+, Macrocytosis 1+ PLAN: DISCHARGE HOME WITH DAUGHTER DIET: TOLERATED ACTIVITY: RESUME TOLERATED ENCOURAGED TO SIT UP IN CHAIR AND STAY ACTIVE POSSIBLE ELEVATE LEGS WHEN SITTING AND WHEN IN BED ABOVE LEVEL OF HIPS AT BEDTIME CONTINUE TO FOLLOW WITH DR. CELESTIN AND HIS RECOMMENDATIONS REGARDING PREDNISONE, DOXYCYXLINE, EYE DROPS AN APPOINTMENT IS SCHEDULED WITH DR. ROSENTHAL/KELLI MORALEZ APRN ON March, AT 11:15 AM CONTINUE MEDICATIONS LISTED ON NURSING DISCHARGE INFORMATION SHEET CODE STATUS: DNR MS. HUTCHINSON IS ALERT AND ORIENTED X 3. SPEECH IS CLEAR. SHE IS HARD OF HEARING AND OFTEN REQUIRES QUESTIONS TO BE REPEATED. DISCHARGE PLANS HAVE BEEN DISCUSSED WITH MS. HUTCHINSON AND SHE IS AGREEABLE. HER DAUGHTER, BARBARA HAS BEEN NOTIFIED AND SHE WILL PROVIDE TRANSPORTATION. MS. HUTCHINSON LIVES WITH HER DAUGHTER, BARBARA AND FAMILY. MS. HUTCHINSON IS INDEPENDENT WITH FEEDING. APPETITE IS POOR AT 10-20%. LIQUID INTAKE IS GOOD. SHE IS CONTINENT OF URINE, BUT DRIBBLING IS NOTED. SHE IS ABLE TO TRAN[place] [facility] [place] 1 STAFF MEMBER. SHE USES A ROLLATOR AT HOME AND IS AMBULATORY SHORT DISTANCES IN THE HOME. SHE REQUIRES SOME ASSISTANCE WITH PERSONAL CARE. MS. HUTCHINSON HAS FOR HER USE AT HOME OXYGEN, ROLLATOR, BSC AND SHOWER CHAIR. MD KELLI MORALES APRN
[2019-03-06 13:53] VITALS: BP 123/61; TEMP 99
--- NOTE | 2019-03-07 14:03 | PN ---
DATE OF SERVICE: 03/06/19 SUBJECTIVE: The patient was seen and examined with the nurse practitioner. Leg edema is practically down to trace. The patient had fluid retention because of Prednisone and she kept it hanging on, increased salt uptake. No evidence of CHF. The patient has eye condition secondary to rheumatoid arthritis likely she is on steroid, tapering dose, now she is on 5 mg twice a day. The patient's condition is stable. TIME SPENT: More than 30 minutes. Plan and coordination of the patient's care discussed in the presence of nurse. JOHN
--- NOTE | 2019-03-07 14:05 | PN ---
BILLING 03/04/19 ADMISSION DAY LEVEL 5 03/05/19 INTERMEDIATE 03/06/19 DISCHARGE MTDD
--- NOTE | 2019-03-13 14:35 | DS ---
DATE OF SERVICE: 03/06/19 FINAL DIAGNOSIS: 1. LEG EDEMA 2. HYPOKALEMIA 3. HYPERTENSION 4. CAD 5. COPD, OXYGEN 6. RHEUMATOID ARTHRITIS (DR. MENDOZA) 7. GERD 8. DYSLIPIDEMIA 9. DJD 10. RECENT EYE INFECTION (DR. MAX) 11. CATARACT EXTRACTION 12. BACK SURGERY X 3 13. BREAST BIOPSY 14. PFT (2017) 15. SEVERE COPD ECHOCARDIOGRAM (2017) BORDERLINE LVH NORMAL VALVES NORMAL LV CONTRACTILITY LAST VITALS Temp Pulse Resp BP Pulse Ox 98.1 F 72 16 139/79 100 03/06/19 05:09 03/06/19 0509 03/06/19 05:09 03/06/19 05: 09 03/06/19 05:09 DISCHARGE INSTRUCTIONS: 1. ENCOURAGED TO SIT UP IN CHAIR AND STAY ACTIVE POSSIBLE. 2. ELEVATE LEGS WHEN SITTING AND WHEN IN BED ABOVE LEVEL OF HIPS AT BEDTIME. 3. CONTINUE TO FOLLOW WITH DR. MAX AND HIS RECOMMENDATIONS REGARDING PREDNISONE, DOXYCYXLINE, EYE DROPS. 4. AN APPOINTMENT IS SCHEDULED WITH DR. ROSENTHAL/KELLI MORALEZ APRN ON March , AT 11:15 AM. 5. CONTINUE MEDICATIONS LISTED ON NURSING DISCHARGE INFORMATION SHEET. MEDICATIONS AT DISCHARGE: Acetaminophen (Tylenol) 1,000 mg PO 0,2099 [facility] Last Admin: 03/06/19 04:49 Dose: Not Given Albuterol Sulfate (Proair Hfa) 2 puff IH Q4H PRN PRN Reason: Wheezing Cephalexin (Keflex) 500 mg PO Q12HR [facility] Last Admin: 03/06/19 08:28 Dose: 500 mg Clonidine (Catapres) 0.1 mg PO DAILY PRN PRN Reason: Hypertensive Emergency Diltiazem HCl (Cardizem Cd) 120 mg PO BID [facility] Last Admin: 03/06/19 08:29 Dose: 120 mg Diphenhydramine HCl (Benadryl) 25 mg PO 0300,2100 [facility] Last Admin: 03/06/19 04:48 Dose: Not Given Erythromycin (Erythromycin) 1 applic OP BEDTIME [facility] Stop: 03/08/19 20:59 Last Admin: 03/05/19 21:06 Dose: 1 applic Folic Acid (Folic Acid) 3 mg PO DAILY [facility] Last Admin: 03/06/19 08:29 Dose: 3 mg Furosemide (Lasix) 20 mg PO DAILY [facility] Last Admin: 03/06/19 08:27 Dose: 20 mg Losartan Potassium (Cozaar) 100 mg PO DAILY [facility] Last Admin: 03/06/19 08:28 Dose: 100 mg Methotrexate (Rheumatrex) 15 mg PO CASTAÑEDA [facility] Last Admin: 03/04/19 20:33 Dose: Not Given Non-Formulary Medication (Furosemide ) 20 mg PO QDAC [facility] Last Admin: 03/06/19 05:42 Dose: Not Given Non-Formulary Medication (Lutein ) 20 mg PO DAILY [facility] Last Admin: 03/06/19 08:34 Dose: 20 mg Non-Formulary Medication (Serum Eye Drops) 1 drop EACHEYE Q2HR [facility] Last Admin: 03/06/19 11:25 Dose: 1 drop Non-Formulary Medication (Doxycycline Hyclate 50 Mg) 1 cap PO DAILY [facility] ( PRESCRIBED BY DR. MAX) Last Admin: 03/06/19 08:26 Dose: 1 cap Non-Formulary Medication (Cyclosporine ) 2 each OP BID [facility] Last Admin: 03/06/19 08:34 Dose: 2 each Omeprazole (Prilosec) 20 mg PO QDAC [facility] Last Admin: 03/06/19 05:39 Dose: 20 mg Polyethylene Glycol (Miralax) 17 gm PO DAILY PRN PRN Reason: Constipation Potassium Chloride (Micro-K Cap) 10 meq PO DAILYWM [facility] Last Admin: 03/06/19 08:31 Dose: 10 meq Prednisone (Prednisone) 5 mg PO BIDWM [facility] (PRESCRIBED BY DR. MAX) Last Admin: 03/06/19 08:29 Dose: 5 mg Simvastatin (Zocor) 20 mg PO DAILY [facility] Last Admin: 03/06/19 08:29 Dose: 20 mg Sotalol HCl (Betapace) 80 mg PO TID [facility] Last Admin: 03/06/19 08:29 Dose: 80 mg Tramadol HCl (Ultram) 50 mg PO BID PRN PRN Reason: MODERATE PAIN Last Admin: 03/05/19 21:47 Dose: 50 mg NEW PRESCRIPTIONS: KEFLEX 500 MG BID FOR 5 DAYS OXYGEN DISCONTINUED MEDICATIONS: None DIET INSTRUCTIONS: As tolerated. ACTIVITY: Resume as tolerated. SMOKING: N/A DISEASE SPECIFIC EDUCATION: USE OF ORAL STEROIDS SIDE EFFECTS OF STEROIDS; SWELLING, GI UPSET ACTIVITY APPOINTMENT HOSPITAL COURSE: This is an 83-year-old white female who presented to the emergency room with worsening leg edema. She has recently had a pretty severe eye infection of both eyes related to rheumatoid arthritis. She is being seen by Dr. Max and because of this infection and has been on high dose steroids. The maximum being 60 mg of Prednisone twice daily along with Doxycycline and serum drops to put in her eyes. She does have Lasix to be taken orally at home. She is rather noncompliant with this. I do believe that her leg edema was a combination of fluid retention related to the high dose steroids as well as noncompliance with the Lasix. She was admitted, initially had elevated blood pressure, was given 40 mg of Lasix IV daily for two days. She now has trace leg edema. She has generalized weakness, rheumatoid arthritis, chronic back pain, history of compression fractures, multiple back surgeries. She is pretty immobile. She refuses physical therapy. Again, she does have rheumatoid arthritis. Dr. Max and Dr. Mendoza have been in contact regarding the steroids and the Doxycycline use. She has lost about 4 lbs since being admitted. Since we have removed the fluid, blood pressure has been fine was 135/79 today. Kidney function was normal, has since remained normal after diuretics. Potassium is slightly low today at 3.33, will give her 40 mEq of potassium prior to discharge and then she has 10 mEq to take daily at home. We have instructed her of the importance to continue her daily Lasix as she is still on Prednisone from Dr. Max. At this point she is on 5 mg b.i.d. of Prednisone along with 50 mg of Doxycycline daily. She is to continue these and instructed to taper them as instructed by Dr. Max. We did initially place her on Keflex due to abnormal urine. Urine culture is still pending. She did when she was in the hospital within the past month or so had a urinary tract infection and we are still awaiting the urine culture. We will send her on Keflex 500 mg b.i.d for the next five days. The risk of the steroid use has been discussed. Her eyesight is improving. She is somewhat anemic at 9.7. She has chronic anemia. This is unchanged so we will discharge her in stable condition. She is to keep her legs elevated, take her medicine as prescribed. We will followup with her in the office next week. TIME SPENT: More than 60 minutes. MTDD
--- NOTE | 2019-03-13 14:56 | HP ---
DATE OF SERVICE: 03/04/19 HISTORY OF PRESENT ILLNESS: This is an 83-year-old white female who presents to the emergency room with swollen ankles. She has been on a high dose of steroids for a bacterial infection in her eyes for several weeks. She has a history of leg edema and should be taking Lasix daily. PAST MEDICAL HISTORY: Hypertension Recent eye infection in both eyes seeing Dr. Max Chronic leg edema Dyslipidemia Coronary artery disease Chronic back pain Rheumatoid arthritis Dry eye Hypertension COPD History of hypokalemia Chronic back pain PAST SURGICAL HISTORY: Multiple back surgeries Breast biopsy REVIEW OF SYSTEMS: CONSTITUTIONAL: Positive for weakness. No night sweats. No fatigue, malaise, lethargy. No fever or chills. HEENT: Eyes: No visual changes. No eye pain. No eye discharge. ENT: No runny nose. No epistaxis. No sinus pain. No sore throat. No odynophagia. No ear pain. No congestion. RESPIRATORY: No cough, no congestion. No hemoptysis. No shortness of breath. CARDIOVASCULAR: No angina symptoms. No CHF symptoms. No atypical chest pain for CAD. No palpitations. No PND. No orthopnea. Positive for leg edema. GASTROINTESTINAL: No abdominal pain. No nausea or vomiting. No diarrhea or constipation. No hematemesis. No hematochezia. GENITOURINARY: No urgency. No frequency. No dysuria. No hematuria. No obstructive symptoms. No discharge. No pain. No significant abnormal bleeding. MUSCULOSKELETAL: No musculoskeletal pain. No joint swelling. No arthritis. NEUROLOGICAL: No headache. No neck pain. No syncope. No seizures. No dizziness. PSYCHIATRIC: Not anxious. No depression. No suicidal thoughts. No homicidal thoughts. SKIN: No rash. No lesions. No wounds. ENDOCRINE: No unexplained weight loss. No weight gain. HEMATOLOGIC/LYMPHATIC: No anemia. No purpura. No petechiae. No prolonged or excessive bleeding. No palpable lymph nodes. PERSONAL/FAMILY/SOCIAL HISTORY: She is a nonsmoker. She is . She lives at home with her daughter. MEDICATIONS: Omeprazole 20 mg p.o. q.d a.c. Cyclosporine two each OP b.i.d. Clonidine 0.1 mg p.o. daily p.r.n. Simvastatin 20 mg p.o. daily Polyethylene Glycol 17 gm p.o. daily p.r.n. Diltiazem 120 mg p.o. b.i.d. Albuterol two puff IH q.4h p.r.n. Sotalol 80 mg p.o. t.i.d. Lutein 20 mg p.o. daily Prednisone 10 mg p.o. as directed Methotrexate Sodium 6 tab p.o. [place] Diphenhydramine 25 mg p.o. 0300, 2100 Acetaminophen 1,000 mg p.o. 0300, 2100 Potassium Chloride 10 mEq p.o. daily Furosemide 20 mg p.o. q.d a.c. Folic Acid 1 mg three tabs p.o. daily Losartan 100 mg p.o. daily Cholecalciferol one cap p.o. daily Tramadol 50 mg tablet 0.5 tab p.o. b.i.d. p.r.n. Erythromycin one application each eye bedtime Doxycycline 50 mg capsule one cap p.o. daily ALLERGIES: IMIPRAMINE, OXYMETAZOLINE, PHENYLEPHRINE, PSEUDOEPHERINE, PHENIRAMINE , ZOLPIDEM, OSELTAMIVIR, CODEINE, HYDROCODONE, RAMIPRIL, CHLORPHENIRAMINE, IBANDRONATE SODIUM, DULOXETINE, CERTOLIZUMAB PEGOL, TAPE PHYSICAL EXAMINATION: VITAL SIGNS: BP 167/97, oxygen saturation 97% on room air, temperature 97.6, heart rate 62, respirations 20. HEENT: Head normocephalic, atraumatic. Eyes: Extraocular muscles are intact. Pupils are equal, round and reactive to light and accommodation. Ears: No lesions. Nose appeared normal. Throat: No exudate or erythema. NECK: Supple. No JVD, no carotid bruit. No lymphadenopathy or thyromegaly. LUNGS: Diminished breath sounds bilaterally. Percussion note normal. Chest symmetrical. HEART: S1, S2, no S3. No murmurs. No cyanosis or clubbing. No ascites. Pulses: Dorsalis pedis and posterior tibial pulses +1 to +2 bilaterally. ABDOMEN: Soft. Nontender. Bowel sounds active. No CVA tenderness. No mass felt. EXTREMITIES: +2 bilateral lower extremity edema. Full range of motion of all extremities, equal. NEUROLOGIC: No focal deficit. Cranial nerves II through XII are grossly intact. No headache, no double vision or headache. SKIN: Not dry. Intact. Turgor - normal. LYMPHATIC: No palpable lymph nodes/no lymphedema. MUSCULOSKELETAL: Normal joints with no swelling. Muscle tone is normal. White count 22,000 likely from steroid use. Hemoglobin 10.6, hematocrit 31.1, platelets 286, sodium 135, potassium 4.1, BUN 36, creatinine 0.73, glucose 292. Chest x-ray shows bilateral atelectasis. ASSESSMENT: 1. LEG EDEMA 2. HYPERTENSION 3. RECENT INFECTION OF BOTH EYES FOLLOWED BY DR. MAX, OPTHAMOLOGY 4. RHEUMATOID ARTHRITIS 5. CHRONIC ANEMIA 6. DYSLIPIDEMIA 7. CORONARY ARTERY DISEASE 8. CHRONIC BACK PAIN. 9. DRY EYE 10. COPD 11. HISTORY OF HYPOKALEMIA PLAN: 1. We will admit. 2. Routine telemetry orders. 3. CBC, CMP daily. 4. IV Lasix 40 mg times one. 5. Continue home medications. 6. Continue Prednisone. 7. UA with culture if indicated. 8. Continue Doxycycline. TIME SPENT: More than 70 minutes. MTDD
== END 2019-03-06 17:40 | disposition home or self-care (01) | DRG 948 ==
LOC: ED 16:36 → MEDSURG B 19:00
PROVIDERS: ADMIT Internal Medicine; ATTEND Internal Medicine
DX: E87.6 Hypokalemia; M25.471 Effusion, right ankle; J44.9 Chronic obstructive pulmonary disease, unspecified; M79.89 Other specified soft tissue disorders; R60.0 Localized edema; M54.9 Dorsalgia, unspecified; I25.10 Atherosclerotic heart disease of native coronary artery without angina pectoris; I10 Essential (primary) hypertension; R06.2 Wheezing; D64.9 Anemia, unspecified; M06.9 Rheumatoid arthritis, unspecified; M19.90 Unspecified osteoarthritis, unspecified site; R06.02 Shortness of breath; Z99.81 Dependence on supplemental oxygen; E78.5 Hyperlipidemia, unspecified; R53.1 Weakness; H04.129 Dry eye syndrome of unspecified lacrimal gland; K21.9 Gastro-esophageal reflux disease without esophagitis